=== PATIENT | female | born 1940 | race Caucasian/White ===

== ENCOUNTER 2023-04-03 09:34 | Outpatient (OUT) | payer MEDICARE, SELFPAY ==
[2023-04-03 10:07] LABS: Basophils Absolute Auto 0.1 10^3/uL (0.0-0.1); Basophils Percent Auto 0.8 % (0.2-2.0); Eosinophils Absolute Auto 0.2 10^3/uL (0.0-0.7); Eosinophils Percent Auto 2.2 % (0.9-7.0); Hematocrit 44.3 % (36.0-48.0); Hemoglobin 14.7 g/dL (12.0-16.0); Immature Granulocytes Abs Auto 0.03 10^3/uL (0.00-0.03); Immature Granulocytes Pct Auto 0.4 % (0.0-0.5); Lymphocytes Percent Auto 34.8 % (20.5-60.0); Mean Corpuscular HGB Conc 33.2 g/dL (29.9-35.2); Mean Corpuscular Hemoglobin 32.5 pg (26.7-34.0); Mean Corpuscular Volume 97.8 fL (81.0-99.0); Mean Platelet Volume 9.8 fL (9.5-13.5); Monocytes Absolute Auto 0.9 10^3/uL (0.3-0.8); Monocytes Percent Auto 10.1 % (1.7-12.0); Neutrophils Absolute Auto 4.4 10^3/uL (1.4-6.5); Neutrophils Percent Auto 51.7 % (43.0-75.0); Platelet Count 242 10^3/uL (150-450); Red Blood Count 4.53 10^6/uL (4.20-5.40); Red Cell Distribution Width 12.7 % (11.0-15.0); White Blood Count 8.5 10^3/uL (4.0-11.0)
== END 2023-04-03 09:35 ==
LOC: LAB 09:37
PROVIDERS: PCP Nurse Practitioner; Visit Provider Nurse Practitioner
DX: K62.5 Hemorrhage of anus and rectum (principal)
CPT/HCPCS: 36415; 85025

== ENCOUNTER 2024-03-09 10:32 | Outpatient (OUT) | payer MEDICARE, SELFPAY ==
--- NOTE | 2024-03-09 10:38 | XR_ITS ---
The [address] [address] Patient Name: LEDA VALENTIN MRN: [id number] date: 1940 Sex: F Assigned Patient Location: [facility] Current Patient Location: Accession/Order Number: [id number] Exam Date: 03/09/2024 10:45 Report Date: 03/10/2024 06:23 At the request of: APOLONIA TINSLEY Procedure: XR chest 2V EXAMINATION: XR chest 2V HISTORY: Shortness Of Breath, Cough COMPARISON: XR chest 07/01/2022 FINDINGS: LUNGS: No appreciable infiltrates. Left lung base opacity favors a prominent pericardial fat pad. VASCULATURE: No increased pulmonary vasculature. PLEURA: No pneumothorax, effusion, or pleural thickening. CARDIAC: No cardiomegaly or cardiac silhouette abnormality. MEDIASTINUM: No visible mass or adenopathy. BONES: No fracture or visible bone lesion. OTHER: Negative. XR/XR chest 2V IMPRESSION: 1. No acute cardiopulmonary process or significant chronic interstitial changes. Electronically authenticated by: MILAGROS CARO Date: 03/10/2024 06:23
== END 2024-03-09 10:33 | disposition home or self-care (01) ==
LOC: RAD 10:34
PROVIDERS: PCP Nurse Practitioner; Visit Provider Nurse Practitioner
DX: R06.02 Shortness of breath (principal); R05.9 Cough, unspecified
CPT/HCPCS: 71046

== ENCOUNTER 2024-06-10 12:29 | Outpatient (OUT) | payer MEDICARE, SELFPAY ==
--- NOTE | 2024-06-10 12:36 | CA_ITS ---
Patient Name: LEDA VALENTIN MR#: [id number] : 1940 Exam Date: 06/10/2024 Ordering Doctor: DR. NICOLE VERDUGO . ECHOCARDIOGRAM REPORT PROCEDURE: CA ECHO DOPPLER COMPLETE INDICATIONS: Shortness of breath, Abnormal CXR COMPARISON: None. DESCRIPTION: COMPLETE ECHOCARDIOGRAM Real-time transthoracic echocardiography with 2D, M-mode, spectral and color flow Doppler performed. QUALITY: Technical quality was good. LEFT VENTRICLE: Normal chamber size. Normal left ventricular wall thickness. LV EF: Global left ventricular systolic function is normal. Calculated left ventricular ejection fraction is 65%. No significant valvular abnormalities. DIASTOLIC: Normal diastolic function. ATRIAL SEPTUM: Inadequately seen. LEFT ATRIUM: Normal chamber size. RIGHT ATRIUM: Normal chamber size. RIGHT VENTRICLE: Normal chamber size. Normal right ventricular systolic function. TRICUSPID VALVE: Normal mobility and thickness. No stenosis with trivial regurgitation. Mild pulmonary hypertension. RVSP 38mmHg MITRAL VALVE: Normal mobility and thickness. No evidence of mitral valve stenosis. Mild mitral annular calcification. Trivial mitral regurgitation. AORTIC VALVE: Normal trileaflet appearance. No visible sclerosis. Normal leaflet mobility. No evidence of aortic valve stenosis. No aortic regurgitation. AORTIC ROOT: Normal diameter and appearance. PULMONIC VALVE: Normal thickness and mobility. No stenosis. No regurgitation. PERICARDIUM: Anterior free space; trivial effusion versus fat pad. IVC: Collapses with inspirations. Normal size. CONCLUSION: 1. Global left ventricular systolic function is normal; visually estimated ejection fraction is 60 to 65% 2. Normal right ventricular size and systolic function 3. Normal diastolic function 4. Mildly elevated right ventricular systolic pressure; RVSP 38 mmHg 5. No significant valvular abnormalities 6. Anterior free space; trivial effusion versus fat pad Adult Echocardiography Procedure Report Left Ventricle LVEDD (3.7 - 5.6 cm): 3.58 cm LVESD (2.2 - 4.0 cm): 2.53 cm LVIVS thickness (0.6 - 1.2 cm): 0.94 cm LVPW thickness (0.5 - 1.0 cm): 0.83 cm e': 0.09 m/s E - e': 10.32 LVOT Max Gradient: 4.31 mm[Hg] LVOT Area (cm2): 1.04 m/s Peak Velocity (LVOT): 1.04 m/s Mean Velocity (LVOT): 0.74 m/s LVOT Diameter 1.99 cm Left Ventricular Ejection Fraction: 65.44 % Left Atrium LA Volume Index (2D A2C): 24.44 ml/m2 Left Atrium Systolic Dimension: 2.92 cm Mitral Valve MV E to A Ratio: 0.69 Mitral Valve A-Wave Peak Velocity: 1.32 m/s Mitral Valve E-Wave Peak Velocity: 0.92 m/s Right Ventricle RV Internal Diastolic Dimension: 3.04 cm Aorta AO Root Diam: 2.65 cm Ascending Ao Diam: 2.30 cm Aortic Valve AoV Area (Peak Wu): 2.44 cm2, 2.37 cm2 AoV Area (VTI): 2.38 cm2, 2.44 cm2 Peak Velocity(Antegrade Flow): 1.36 m/s, 1.28 m/s Peak Gradient(Antegrade Flow): 7.41 mm[Hg], 6.56 mm[Hg] Mean Velocity(Antegrade Flow): 1.01 m/s, 0.96 m/s Mean Gradient(Antegrade Flow): 4.53 mm[Hg], 4.12 mm[Hg] Velocity Time Integral: 31.46 cm, 32.98 cm Tricuspid Valve Peak Velocity (Regurgitant Flow): 1.91 m/s, 2.97 m/s, 2.61 m/s Pulmonic Valve Mean Gradient: 3.12 mm[Hg], 3.63 mm[Hg], 3.51 mm[Hg], 4.03 mm[Hg] Mean Velocity: 0.83 m/s, 0.91 m/s, 0.89 m/s, 0.97 m/s Peak Velocity: 1.27 m/s Peak Gradient: 5.92 mm[Hg], 6.49 mm[Hg], 6.49 mm[Hg], 6.86 mm[Hg] Right Atrium Right Atrium Systolic Pressure: 24.79 ml, 24.79 ml Dictated by: Nomi Casillas M.D. on 06/10/2024 at 16:47 Approved by: Nomi Casillas M.D. on 06/10/2024 at 16:51
[2024-06-10 12:38] LABS: Hemoglobin 14.4 g/dL (12.0-16.0)
[2024-06-10] MEDS: ALBUTEROL SULFATE 2.5 MG/3 ML VIAL NEB IH (13:55)
--- NOTE | 2024-06-10 13:55 | RT_ITS ---
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 Findings were considered accurate and reproducible. Both pre- and post-bronchodilator values utilized for spirometry. Spirometry (based on pre-bronchodilator values): -FEV1/FVC: Reduced @ 66% -FEV1: Moderately reduced @ 78% -FVC: Low normal @ 86% -There is a partial bronchodilator response in FEV1 which meets >12% change but not >200mL increase. Lung volumes by plethysmography (based on pre-bronchodilator values): -RV: Increased @ 127% -TLC: Normal @ 111% Diffusion capacity: -DLCO: Moderate reduction @ 60% when corrected for Hb 14.4g/dL Flow-volume loop: -Moderate obstructive pattern Impressions: -Spirometry is consistent with a moderate obstructive pattern with a partial bronchodilator response. An elevated RV suggests air trapping. There is a moderately reduced diffusion capacity. Overall study suggests COPD/emphysema or possibly asthma-COPD overlap. Clinical correlation required. Electronically Signed On 06-11-2024 8:11:43 EDT by Melvin Mcqueen
== END 2024-06-10 12:30 | disposition home or self-care (01) ==
LOC: CARD 12:29
PROVIDERS: PCP Family Medicine; Visit Provider Internal Medicine
DX: R06.02 Shortness of breath (principal); R05.3 Chronic cough; R93.89 Abnormal findings on diagnostic imaging of other specified body structures
CPT/HCPCS: 36415; 85018; 93306; 94060; 94726; 94729

== ENCOUNTER 2024-06-29 15:48 | Outpatient (OUT) | payer MEDICARE, SELFPAY ==
--- NOTE | 2024-06-29 | CT_ITS ---
[address] [address] Patient Name: LEDA VALENTIN MRN: [id number] date: 1940 Sex: F Assigned Patient Location: CT Current Patient Location: Accession/Order Number: [id number] Exam Date: 06/29/2024 16:05 Report Date: 07/01/2024 07:19 At the request of: NICOLE VERDUGO Procedure: CT chest wo con EXAMINATION: CT chest wo con HISTORY: Abnormal chest xray COMPARISON: 03/09/2024 TECHNIQUE: Multi-planar CT images were created with IV contrast. Axial, Coronal, and Sagittal images. Dose reduction techniques were achieved by using automated exposure control and/or adjustment of mA and/or kV according to patient size and/or use of iterative reconstruction technique. FINDINGS: LUNGS: Biapical pleural parenchymal scarring no significant pulmonary nodule or mass PLEURA: No mass, effusion, or pneumothorax. VASCULATURE: No abnormality. JASON: No mass or adenopathy. MEDIASTINUM: No mass or adenopathy. CARDIAC: No enlargement or pericardial effusion Coronary arteries: Moderate calcifications AORTA: No aneurysm or dissection. CHEST WALL: No mass or axillary adenopathy. BONES: No bone lesion or fracture. LIMITED ABDOMEN: No suspicious findings. Limited images of the upper abdomen. OTHER: Negative. CT/CT chest wo con IMPRESSION: No acute abnormality Electronically authenticated by: KRISHAN VASQUEZ Date: 07/01/2024 07:19
--- OUTSIDE RECORDS SUMMARY | 2024-06-29 16:02 | XMS_ITS | CCD ---
Author Organization [facility] CliniSyfl Care Team Providers Care Case Packer Name Role Phone Cruz Woodward Admitting Unavailable Cruz Woodward Attending Unavailable Hurtado, Brenda Myers Primary Care Unavailable Andrei Anitha Unavailable Zeenat Cartwright Unavailable ISAAC, DR BRENDA Myers Primary Care Unavailable ISAAC, DR BRENDA Myers Admitting Unavailable HURTADO, DR BRENDA Myers Attending Unavailable EAGLE, DR JENNIFER Diego Consulting Unavailable ISAAC, DR BRENDA Myers Consulting Unavailable PEDRO, DR NICKERSON Consulting Unavailable LEDA NASH Consulting Unavailable ISAAC, DR BRENDA Myers Admitting Unavailable ISAAC, DR BRENDA Myers Attending Unavailable ISAAC, DR BRENDA Myers Primary Care Unavailable HURTADO, DR BRENDA Myers Consulting Unavailable TIERA THAYER Consulting Unavailable ISAAC, DR BRENDA Myers Admitting Unavailable ISAAC, DR BRENDA Myers Attending Unavailable ISAAC, DR BRENDA Myers Primary Care Unavailable ISAAC, DR BRENDA Myers Consulting Unavailable WEST, DR NICKERSON Consulting Unavailable ISAAC, DR BRENDA Myers Admitting Unavailable ISAAC, DR BRENDA Myers Attending Unavailable ISAAC, DR BRENDA Myers Primary Care Unavailable ISAAC, DR BRENDA Myers Consulting Unavailable ISAAC, DR BRENDA Myers Admitting Unavailable ISAAC, DR BRENDA Myers Attending Unavailable ISAAC, DR BRENDA Myers Primary Care Unavailable HURTADO, DR BRENDA Myers Consulting Unavailable GORDO, DR MILAGROS Diego Consulting Unavailable ISAAC, DR BRENDA Myers Admitting Unavailable ISAAC, DR BRENDA Myers Attending Unavailable ISAAC, DR BRENDA Myers Primary Care Unavailable HURTADO, DR BRENDA Myers Admitting Unavailable ISAAC, DR BRENDA Myers Attending Unavailable HURTADO, DR BRENDA Myers Primary Care Unavailable HURTADO, DR BRENDA Myers Consulting Unavailable Ester Bautista Primary Care Physician [phone] Ester Bautista Attending Unavailable MicheleEster mari Attending Unavailable MicheleEster mari Attending Unavailable MicheleEster mari Attending Unavailable MicheleEster mari Attending Unavailable Allergies Allergy Classification Reported Allergen(s) Allergy Type Date of Onset Reaction(s) Facility (4 sources) Codeine; Translations: [codeine] Drug Allergy Swelling (morphologic abnormality) [facility] (1 source) Codeine Drug Allergy [facility] Repository Medications Current Medications Medication Drug Class(es) Dates Sig (Normalized) Sig (Original) amoxicillin 875 mg oral tablet (1 source) Penicillin-class Antibacterial Start: 2 take 1 tablet by mouth every twelve hours Amoxicillin 875 MG 1 tablet Orally every 12 hrs for 7 days May, Active Fish Oils (2 sources) take 1 capsule by mouth three times daily Fish Oil 1200 MG 1 capsule Orally Three times a day for 30 day(s) Active fluticasone propionate 0.05 mg/actuat metered dose nasal spray (1 source) Corticosteroid Start: 2 take 1 spray(s) nasal route once daily Fluticasone Propionate 50 MCG/ACT 1 spray in each nostril Nasally Once a day for 14 day(s) Jun, Active methylPREDNISolone 4 mg oral tablet (1 source) Corticosteroid Start: 2 methylPREDNISolone 4 MG as directed Orally Once a day for 6 days May, Active Multivitamin Adults - (2 sources) Multivitamin Kuldip lts - as directed Orally Active Completed/Discontinued Medications Medication Drug Class(es) Dates Sig (Normalized) Sig (Original) Hemorrhoidal rectal suppository (1 source) Start: 04-03-2023 Hemorrhoidal rectal suppository See Instructions, 3 EA, Refill(s) 0, Insert 1 suppository rectally as needed, [facility]/pharmacy #[id number], 153.1, cm, 04/03/23 8:25:00 EDT, Height/Length Dosing, 87.1, kg, 04/03/23 8:25:00 EDT, Weight Dosing Start Date: 04/03/23 Status: Ordered Problems Active Problems Problem Classification Problem Date Documented Da te Episodic/Chronic Fever of unknown origin (4 sources) Fever, unspecified; Translations: [FEVER UNSPECIFIED] Onset: 06-25-2022 Episodic Gastrointestinal hemorrhage (1 source) Rectal hemorrhage 04-03-2023 Episodic Osteoarthritis (6 sources) Osteoarthritis of knee; Translations: [Unilateral primary osteoarthritis, left knee] Chronic Other connective tissue disease (4 sources) History of total knee arthroplasty; Translations: [History of total knee arthroplasty] Chronic Other diseases of veins and lymphatics (2 sources) Peripheral venous insufficiency; Translations: [Venous insufficiency (chronic) (peripheral)] Episodic Other lower respiratory disease (1 source) Shortness of breath; Translations: [SHORTNESS OF BREATH] Onset: 07-03-2022 Episodic Pneumonia (except that caused by tuberculosis or sexually transmitted disease) (4 sources) Pneumonia, unspecified organism; Translations: [PNEUMONIA UNSPECIFIED ORGANISM] Onset: 07-02-2022 Episodic Screening and history of mental health and substance abuse codes (1 source) Personal history of nicotine dependence; Translations: [PERSONAL HISTORY OF NICOTINE DEPEND] Onset: 07-03-2022 Episodic Spondylosis; intervertebral disc disorders; other back problems (2 sources) Lumbosacral spondylosis without myelopathy; Translations: [Spondylosis without myelopathy or radiculopathy, lumbar region] Chronic Unclassified (1 source) Z96.653 - Presence of artificial knee joint, bilateral; Translations: [Z96.653 - Presence of artificial knee joint, bilateral] Onset: 02-11-2019 Unclassified (1 source) PERSONAL HISTORY OF COVID-19; Translations: [PERSONAL HISTORY OF COVID-19] Onset: 07-03-2022 Unclassified (3 sources) CONTACT W/AND (SUSP) EXPOS COVID-19; Translations: [CONTACT W/AND (SUSP) EXPOS COVID-19] Onset: 06-07-2022 Unclassified (1 source) COUGH, UNSPECIFIED; Translations: [COUGH, UNSPECIFIED] Onset: 05-31-2022 Viral infection (2 sources) COVID-19; Translations: [COVID-19] Onset: 06-06-2022 Resolved: 06-06-2022 Past or Other Problems Problem Classification Problem Date Documented Date Episodic/Chronic Abdominal pain (8 sources) Right upper quadrant pain; Translations: [Unspecified abdominal pain] Onset: 05-29-2022 Episodic Other upper respiratory infections (2 sources) Acute laryngitis; Translations: [Acute upper respiratory infection, unspecified] Onset: 06-06-2022 Resolved: 06-21-2022 Episodic Otitis media and related conditions (2 sources) Otitis media, unspecified, bilateral; Translations: [Unspecified nonsuppurative otitis media, left ear] Onset: 06-06-2022 Resolved: 06-21-2022 Episodic Unclassified (1 source) CONTACT W/AND (SUSP) EXPOS COVID-19; Translations: [CONTACT W/AND (SUSP) EXPOS COVID-19] Onset: 06-05-2022 Results Test Name Value Interpretation Reference Range Facility Ambulatory Visit Summaryon 0 06-25-2024 Ambulatory Visit Summary Ambulatory Visit Summary DINA GREEN :1940 Visit Date:06/24/2024 Ambulatory Visit Instructions Your Diagnosis Encounter for subsequent annual wellness visit in Medicare patient Immunization refused Shortness of breath Lipid screening declined by patient Obesity due to excess calories Your Care Team Attending Physician - Ester Romero Primary Care Physician - Ester Romero This Is Your Medications List budesonide/formoterol /glycopyrrolate (Breztri Aerosphere) multivitamin (Multi Vitamin+) omega-3 polyunsaturated fatty acids (Fish Oil) Procedures Performed Appendectomy, section, Hysterectomy and bilateral salpingo-oophorectomy specimen. Discharge Vitals Heart Rate (Peripheral) 77 Respiratory Rate 16 Blood Pressure 130/60 Height 152 cm Height 60 in Weight 83.73 kg Weight 184.206 lb BMI 36.24 What to do next Scheduled Follow-Up Appointments Friday 8:00 AM EDT Where: [facility] [address] [address]- Medications What How Much When Instructions Unchanged budesonide/ formoterol/ glycopyrrolate (Breztri Aerosphere) 2 Puffs Inhalation 2 times a day Unchanged multivitamin (Multi Vitamin+) Unchanged omega-3 polyunsaturated fatty acids (Fish Oil) 1,000 Milligram By Mouth Every day Medications and Immunizations Administered Not Given influenza virus vaccine, inactivated, Patient Refuses Allergies codeine (Swelling) Problems Ongoing - Any problem that you are currently receiving treatment for. Bilateral otitis media BMI 36.0-36.9,adult Cough Left otitis media Rectal bleeding Seasonal allergies Shortness of breath Sinusitis Upper respiratory infection Patient Survey You may receive a survey via text or e-mail asking about your office visit. Please share your experience with us by completing your survey. We appreciate your feedback and thank you for choosing us for your care. Education Materials BMI for Adults Body mass index (BMI) is a number found using a person's weight and height. BMI can help tell how much of a person's weight is made up of fat. BMI does not measure body fat directly. It is used instead of tests that directly measure body fat, which can be difficult and expensive. What are BMI measurements used for? BMI is useful to: ? Find out if your weight puts you at higher risk for medical problems. ? Help recommend changes, such as in diet and exercise. This can help you reach a healthy weight. BMI screening can be done again to see if these changes are working. How is BMI calculated? Your height and weight are measured. The BMI is found from those numbers. This can be done with U.S. or metric measurements. Note that charts and online BMI calculators are available to help you find your BMI quickly and easily without doing these calculations. To calculate your BMI in U.S. measurements: 1. Measure your weight in pounds (lb). 2. Multiply the number of pounds by 703. ? So, for an adult who weighs 150 lb, multiply that number by 703: 150 x 703, which equals 105,450. 3. Measure your height in inches. Then multiply that number by itself to get a measurement called inches squared. ? So, for an adult who is 70 inches tall, the inches squared measurement is 70 inches x 70 inches, which equals 4,900 inches squared. 4. Divide the total from step 2 (number of lb x 703) by the total from step 3 (inches squared): 105,450 ? 4,900 = 21.5. This is your BMI. To calculate your BMI in metric measurements: 1. Measure your weight in kilograms (kg). ? For this example, the weight is 70 kg. 2. Measure your height in meters (m). Then multiply that number by itself to get a measurement called meters squared. ? So, for an adult who is 1.75 m tall, the meters squared measurement is 1.75 m x 1.75 m, which equals 3.1 meters squared. 3. Divide the number of kilograms (your weight) by the meters squared number. In this example: 70 ? 3.1 = 22.6. This is your BMI. What do the results mean? BMI charts are used to see if you are underweight, normal weight, overweight, or obese. The following guidelines will be used: ? Underweight: BMI less than 18.5. ? Normal weight: BMI between 18.5 and 24.9. ? Overweight: BMI between 25 and 29.9. ? Obese: BMI of 30 or above. BMI is a tool and cannot diagnose a condition. Talk with your health care provider about what your BMI means for you. Keep these notes in mind: ? Weight includes fat and muscle. Someone with a muscular build, such as an athlete, may have a BMI that is higher than 24.9. In cases like these, BMI is not a correct measure of body fat. ? If you have a BMI of 25 or higher, your provider may need to do more testing to find out if excess body fat is the cause. ? BMI is measured the same way for (more content not included)... Normal [facility] Family Medicine Office/Clini c Noteon 06-25-2024 Family Medicine Office/Clinic Note Family Medicine Office/Clinic Note Chief Complaint Subsequent Medicare Wellness Review of Systems PHQ Score Initial Depression Screen Score: 0 SCORE Physical Exam Vitals & Measurements HR: 77(Peripheral) RR: 16 BP: 130/60 SpO2: 97% HT: 152 cm HT: 60 in WT: 83.73 kg WT: 184.206 lb BMI: 36.24 Assessment/Plan 1. Encounter for subsequent annual wellness visit in Medicare patient (Z00.00: Encounter for general adult medical examination without abnormal findings) All the current AHRQ USPSTF?s recommendations for preventative services and all current CDC recommended immunizations, relevant risk recommendations and the following patient brochures were discussed. Patient did declined a copy. Patient understands that it is available if patient would like a copy. Reviewed Medicare Prevention Services checklist. CDC-Falls Prevention and home safety screening reviewed. Patient denies any falls in last 12 months, voices no worry about falling. Exhibits no problems with sitting, standing or ambulation. Patient aware with keeping walk way area free of clutter to prevent tripping and/or falling. [place] Advance Directives reviewed. Documents are scanned into chart. Patient is an organ donor. Patient denies any problems with ADL?s and Instrumental ADL?s. Cognitive screening completed with memory and clock face drawing. No deficits noted. Patient recited 3/3 memory words. Immunization record reviewed, discussed Shingrix vaccine with educational handout and availability. 0 COVID vaccines have been administered. Patient reports that she does not get immunizations. Allergies and medications reviewed and up to date. No concerns with taking medication as prescribed. Reviewed OTC medications, medication list up to date. Blood tests were reviewed: Discussed what tests need to be updated. Patient reports that she had labs done for Dr. Mcqueen at [facility]. Labs reports will be requested. No concerns with bowel/ bladder. No longer screening with colonoscopy due to age. Reviewed pain symptoms : Patient denies pain. Reviewed all outside providers that patient follows. Last visit summary notes available in chart and/or have been requested. Patient declines any signs or symptoms of depression at this time. 8 minutes spent with screening and documentation. PHQ2 screening score 0. Patient drinks alcohol once every 3-4 months. 1-2 drinks, denies concerns. 8 minutes spent with screening and documentation. Audit score 1. Follow up scheduled with PCP, Patient declines to make follow up appointment. Patient reports she will make an appointment when needed. AWV has been scheduled, 06/27/2025 2. Immunization refused (Z28.21: Immunization not carried out because of patient refusal) Patient declines yearly recommend influenza vaccine. Discussed increased risk factors vs benefits, reviewed importance to follow up and discuss with PCP 3. Shortness of breath (R06.02: Shortness of breath) Patient has follow up scheduled with Dr. Mcqueen to discuss results of PFT, Echo, and lab work 06/29/2024. 4. Lipid screening declined by patient (Z53.20: Procedure and treatment not carried out because of patient's decision for unspecified reasons) Lipid screening declined by patient today. Patient reports that Dr. Mcqueen had her get lab work recently at [facility]. Patient is unsure what tests were ordered. Request to [facility] to fax lab results. 5. Obesity due to excess calories (E66.09: Other obesity due to excess calories) The standard range for ages 18 and older is >=18.5 and < 25 kg/m2. Your BMI 36.24 today was above this range, this falls in the overweight obesity morbid obese category and there are medical benefits to weight loss. BMI monitoring is helpful with identifying a weight problem that may be related to a medical condition, or may increase the risk for medical problems. Your BMI and weight management will be followed at subsequent visits with your provider and monitored for progress. GOAL: promoting healthier lifestyle with diet changes in order to reach a healthy weight. Follow-up No qualifying data available Patient Education BMI for Adults Shortness of Breath, Adult Health Maintenance After Age 65 Problem List/Past Medical History Ongoing Bilateral otitis media BMI 36.0-36.9,adult Cough Left otitis media Rectal bleeding Seasonal allergies Shortness of breath Sinusitis Upper respiratory infection Historical No qualifying data Procedure/Surgical History Appendectomy, section, Hysterectomy and bilateral salpingo-oophorectomy specimen. Medications Breztri Aerosphere, 2 puff(s), Inhalation, BID, Not taking Fish Oil, 1000 mg, Oral, Daily Multi Vitamin+ Allergies codeine (Swelling) Social History Alcohol Current, Liquor, 1-2 times per year, 1.00 drinks/episode maximum. Alcohol use interferes with work or home: No. Drinks more than intended: No. Others hurt by drinking: No. Ready to change: No. Household alcohol concerns: No., 06/24/2024 Subst (more content not included)... Normal [facility] Comment on above: Result Comment: Elec tronically Signed By: Ester Romero\.br\Date and Time Signed: 06/25/24 09:05 EDT\.br\Electronically Co-Signed By: Melissa Nguyen\.br\Date and Time Co-Signed: 06/24/24 10:14 EDT Ambulatory Visit Summaryon 0 04-16-2024 Ambulatory Visit Summary Ambulatory Visit Summary DINA GREEN :1940 Visit Date:04/16/2024 Ambulatory Visit Instructions Your Diagnosis Sinusitis Left otitis media Cough BMI 36.0-36.9,adult Non-smoker Your Care Team Attending Physician - Ester Romero Primary Care Physician - Ester Romeor This Is Your Medications List budesonide/formoterol /glycopyrrolate (Breztri Aerosphere) cefuroxime (cefuroxime 500 mg oral tablet) dextromethorphan/guai fenesin/pseudoephedri ne (Capmist DM 15 mg-400 mg-60 mg oral tablet) methylPREDNISolone (methylPREDNISolone 4 mg tab dosepak) multivitamin (Multi Vitamin+) omega-3 polyunsaturated fatty acids (Fish Oil) Procedures Performed Appendectomy, section, Hysterectomy and bilateral salpingo-oophorectomy specimen. Discharge Vitals Temperature (Tympanic) 36.9 ?C Heart Rate (Peripheral) 74 Respiratory Rate 18 Blood Pressure 136/78 Height 152.0 cm Height 60 in Weight 84.6 kg Weight 186.12 lb BMI 36.62 What to do next Scheduled Follow-Up Appointments 2023 8:00 AM EDT Where: [facility] [place] [facility] Medicine Office/Clini c Noteon 04-16-2024 Family Medicine Office/Clinic Note Family Medicine Office/Clinic Note HPI Staff Dina is a 83 year old female presenting for acute sick visit Respiratory C/O: Onset: 6 days Body aches: no Chest congestion: yes Chills: no Cough: yes Sputum production: no Sore throat: post nasal drainage Ear complaints: yes pressure Eye itching/watering: no Fever: no Headache: yes Nasal congestion: yes Nasal discharge: yes Poor appetite: no Reduced activity: no Sinus pain/pressure: yes Sneezing: no Wheezing: no Ill contacts: no Remedies tried: Benadryl Coughing so much and so hard History of Present Illness pt presents today with URI symptoms Review of Systems PHQ Score Initial Depression Screen Score: 0 SCORE Physical Exam Vitals & Measurements T: 36.9 ?C(Tympanic) HR: 74(Peripheral) RR: 18 BP: 136/78 SpO2: 96% HT: 60 in HT: 152.0 cm WT: 84.6 kg WT: 186.12 lb BMI: 36.62 General: alert, no acute distress ENMT: oral mucosa moist, no pharyngeal erythema or exudate, left TM red and full of fluid Cardiovascular: regular rate and rhythm, normal peripheral perfusion Respiratory: Lungs CTA, respirations non labored Extremities: no deformity, no trauma Neurological: oriented x 4, LOC appropriate for age, CN II-XII intact, motor strength equal & normal bilaterally, speech normal Assessment/Plan 1. Sinusitis (J32.9: Chronic sinusitis, unspecified) nasal congestion, sinus tenderness, ear pressure cough. antibiotics Medrol dose pack and Capmist sent to pharmacy 2. Left otitis media (H66.92: Otitis media, unspecified, left ear) left TM red and full of fluid 3. Cough (R05.9: Cough, unspecified) severe cough pt unable to sleep at night 4. BMI 36.0-36.9,adult (Z68.36: Body mass index [BMI] 36.0-36.9, adult) BMI education given 5. Non-smoker (Z78.9: Other specified health status) continue not smoking Orders: cefuroxime, 500 mg = 1 tab(s), Oral, BID, X 10 day(s), # 20 tab(s), Refills(s) 0, Pharmacy: [facility]/pharmacy #[id number], 152, cm, 04/16/24 10:39:00 EDT, Height/Length Dosing, 84.6, kg, 04/16/24 10:39:00 EDT, Weight Dosing dextromethorphan/guai fenesin/pseudoephedri ne, See Instructions, 28 tab(s), Refill(s) 0, TAKE 1 TABLET BY MOUTH EVERY 4 HOURS, [facility]/pharmacy #[id number], 152, cm, 04/16/24 10:39:00 EDT, Height/Length Dosing, 84.6, kg, 04/16/24 10:39:00 EDT, Weight Dosing methylPREDNISolone, = 1 packet(s), Oral, Once, as directed on package labeling, # 21 tab(s), Refills(s) 0, Pharmacy: [facility]/pharmacy #[id number], 152, cm, 04/16/24 10:39:00 EDT, Height/Length Dosing, 84.6, kg, 04/16/24 10:39:00 EDT, Weight Dosing Follow-up No qualifying data available Problem List/Past Medical History Ongoing Bilateral otitis media Cough Left otitis media Rectal bleeding Seasonal allergies Shortness of breath Sinusitis Upper respiratory infection Historical No qualifying data Procedure/Surgical History Appendectomy, section, Hysterectomy and bilateral salpingo-oophorectomy specimen. Medications Breztri Aerosphere, 2 puff(s), Inhalation, BID Capmist DM 15 mg-400 mg-60 mg oral tablet, See Instructions cefuroxime 500 mg oral tablet, 500 mg= 1 tab(s), Oral, BID Fish Oil, 1000 mg, Oral, Daily methylPREDNISolone 4 mg tab dosepak, 1 packet(s), Oral, Once Multi Vitamin+ Allergies codeine (Swelling) Social History Alcohol Liquor, 1-2 times per year, 1.00 drinks/episode maximum. Household alcohol concerns: No., 06/19/2023 Tobacco Former smoker, quit more than 30 days ago Tobacco Use:. Never Smokeless Tobacco Use:. Cigarettes, Household tobacco concerns: No., 04/16/2024 Family History Acute myocardial infarction: Father. Primary malignant neoplasm of colon: Mother. Stroke: Father. [facility] Comment on above: Result Comment: Elec tronically Signed By: Ester Romero\.br\Date and Time Signed: 04/16/24 10:52 EDT Physician Referralon 024 Physician Referral [id number]# 1.00TIFF [facility] Family Medicine Phone Visit - Telehealthon 03-29-2024 Family Medicine Phone Visit - Telehealth Assessment/Plan 1. Shortness of breath (R06.02: Shortness of breath) patient phones in and states the bretztri inhaler is not helping her shortness of breath. would like referral to DR. Mcqueen. Ordered: [facility] External Ambulatory Referral Follow-up No qualifying data available Problem List/Past Medical History Ongoing Bilateral otitis media Cough Rectal bleeding Seasonal allergies Shortness of breath Sinusitis Upper respiratory infection Historical No qualifying data Procedure/Surgical History Appendectomy, section, Hysterectomy and bilateral salpingo-oophorectomy specimen. Medications Breztri Aerosphere, 2 puff(s), Inhalation, BID Fish Oil, 1000 mg, Oral, Daily Multi Vitamin+ Allergies codeine (Swelling) Social History Alcohol Liquor, 1-2 times per year, 1.00 drinks/episode maximum. Household alcohol concerns: No., 06/19/2023 Tobacco Former smoker, quit more than 30 days ago Tobacco Use:. Never Smokeless Tobacco Use:. Cigarettes, Household tobacco concerns: No., 03/09/2024 Family History Acute myocardial infarction: Father. Primary malignant neoplasm of colon: Mother. Stroke: Father. [facility] Comment on above: Result Comment: Elec tronically Signed By: Ester Romero.br\Date and Time Signed: 03/29/24 11:08 EDT RAD - MISCon 03-10-2024 [facility] [id number]#1 .00TIFF [facility] Ambulatory Visit Summaryon 0 03-09-2024 Ambulatory Visit Summary DINA GREEN :1940 Visit Date:03/09/2024 Ambulatory Visit Instructions Your Diagnosis Shortness of breath Sinusitis Cough Seasonal allergies BMI 37.0-37.9, adult Former smoker Your Care Team Attending Physician - Ester Romero Primary Care Physician - Ester Romero This Is Your Medications List budesonide/formoterol /glycopyrrolate (Breztri Aerosphere) cefuroxime (cefuroxime 500 mg oral tablet) multivitamin (Multi Vitamin+) omega-3 polyunsaturated fatty acids (Fish Oil) Procedures Performed Appendectomy, section, Hysterectomy and bilateral salpingo-oophorectomy specimen. Discharge Vitals Heart Rate (Peripheral) 86 Respiratory Rate 18 Blood Pressure 138/84 Height 152.0 cm Height 60 in Weight 85.6 kg Weight 188.32 lb BMI 37.05 What to do next Scheduled Follow-Up Appointments 2023 8:00 AM EDT Where: [facility] [place] Normal [facility] Family Medicine Office/Clini c Noteon 03-09-2024 Family Medicine Office/Clinic Note HPI Staff iDna is a 83 year old female presenting for acute visit Onset: over a year gradually getting worse Having shortness of breath with activity has had it over a year but getting worse. Pt stated as long as she walks slow and not to far or doesn't carry anything heavy she is ok. But if she walks at a faster pace becomes very short of breath. Onset: 3-4 years right simental red and has intermittent sharp pains. 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 Dry cough with post nasal drainage, has been taking Benadryl History of Present Illness pt c/o worsening shortness of breath Review of Systems PHQ Score Initial Depression Screen Score: 0 SCORE Physical Exam Vitals & Measurements HR: 86(Peripheral) RR: 18 BP: 138/84 SpO2: 98% HT: 60 in HT: 152.0 cm WT: 85.6 kg WT: 188.32 lb BMI: 37.05 General: alert, no acute distress ENMT: oral mucosa moist, no pharyngeal erythema or exudate Cardiovascular: regular rate and rhythm, normal peripheral perfusion Respiratory: Lungs CTA, respirations non labored Extremities: no deformity, no trauma Neurological: oriented x 4, LOC appropriate for age, CN II-XII intact, motor strength equal & normal bilaterally, speech normal Assessment/Plan 1. Shortness of breath (R06.02: Shortness of breath) pt c/o worsening shortness of breath a cough. chest xray ordered. sample of bretrzi provided. if it helps pt will let us know to call rx into pharmacy. 2. Sinusitis (J32.9: Chronic sinusitis, unspecified) will send cefuroxime Ordered: dextromethorphan/guai fenesin/pseudoephedri ne, 1 tab(s), Oral, q4hr, 30 tab(s), Refill(s) 0, [id number], 152, cm, 09/16/23 8:55:00 EST, Height/Length Dosing, 83.8, kg, 09/16/23 8:55:00 EST, Weight Dosing 3. Cough (R05.9: Cough, unspecified) chest x ray ordered. discussed possible referral to pulmonology. 4. Seasonal allergies (J30.2: Other seasonal allergic rhinitis) allergies are flared up. offered kenalog or medrol dose pack. she declines both 5. BMI 37.0-37.9, adult (Z68.37: Body mass index [BMI] 37.0-37.9, adult) BMI education complete Ordered: phenylephrine topical, See Instructions, 3 EA, Refill(s) 0, Insert 1 suppository rectally as needed, [id number], 153.1, cm, 04/03/23 8:25:00 EDT, Height/Length Dosing, 87.1, kg, 04/03/23 8:25:00 EDT, Weight Dosing 6. Former smoker (Z87.891: Personal history of nicotine dependence) continue not smoking Orders: cefuroxime, 500 mg = 1 tab(s), Oral, BID, X 7 day(s), # 14 tab(s), Refills(s) 0, Pharmacy: [facility] #[id number], 152, cm, 03/09/24 9:36:00 EDT, Height/Length Dosing, 85.6, kg, 03/09/24 9:36:00 EDT, Weight Dosing methylPREDNISolone, = 1 packet(s), Oral, Once, as directed on package labeling, # 21 tab(s), Refills(s) 0, Pharmacy: [facility] #[id number], 152, cm, 09/16/23 8:55:00 EST, Height/Length Dosing, 83.8, kg, 09/16/23 8:55:00 EST, Weight Dosing Follow-up No qualifying data available Problem List/Past Medical History Ongoing Bilateral otitis media Cough Rectal bleeding Seasonal allergies Shortness of breath Sinusitis Upper respiratory infection Historical No qualifying data Procedure/Surgical History Appendectomy, section, Hysterectomy and bilateral salpingo-oophorectomy specimen. Medications Breztri Aerosphere, 2 puff(s), Inhalation, BID cefuroxime 500 mg oral tablet, 500 mg= 1 tab(s), Oral, BID Fish Oil, 1000 mg, Oral, Daily Multi Vitamin+ Allergies codeine (Swelling) Social History Alcohol Liquor, 1-2 times per year, 1.00 drinks/episode maximum. Household alcohol concerns: No., 06/19/2023 Tobacco Former smoker, quit more than 30 days ago Tobacco Use:. Never Smokeless Tobacco Use:. Cigarettes, Household tobacco concerns: No., 03/09/2024 Family History Acute myocardial infarction: Father. Primary malignant neoplasm of colon: Mother. Stroke: Father. [facility] Comment on above: Result Comment: Elec tronically Signed By: Ester Romero\.wilber\Date and Time Signed: 03/09/24 10:17 EDT Physician Orderon 03-09-2024 Physician Order [id number] .00TIFF [facility] Ambulatory Visit Summaryon 1 11-16-2022 Ambulatory Visit Summary DINA GREEN Anabel :1940 Visit Date:09/16/2023 Ambulatory Visit Instructions Your Diagnosis BMI 36.0-36.9,adult Non-smoker Your Care Team Attending Physician - Ester Romero Primary Care Physician - Ester Romero This Is Your Medications List multivitamin (Multi Vitamin+) omega-3 polyunsaturated fatty acids (Fish Oil) phenylephrine topical (Hemorrhoidal rectal suppository) Procedures Performed Appendectomy, section, Hysterectomy and bilateral salpingo-oophorectomy specimen. Discharge Vitals Temperature (Tympanic) 37.1 ?C Heart Rate (Peripheral) 106 Respiratory Rate 20 Blood Pressure 158/82 Height 152 cm Height 60 in Weight 83.8 kg Weight 184.36 lb BMI 36.27 What to do next Scheduled Follow-Up Appointments 2023 8:00 AM EDT Where: [facility] Family Medicine Office/Clini c Noteon 09-16-2023 Family Medicine Office/Clinic Note HPI Staff Dina is a 82 year old female presenting for acute sick visit Respiratory C/O: Onset: 3 days ago Body aches: no Chest congestion: yes Chills: yes Cough: yes Sputum production: yes brown/yellow started today Sore throat: no Ear complaints: yes bilateral pain Eye itching/watering: no Fever: no Headache: yes Nasal congestion: no Nasal discharge: yes clear Poor appetite: no Reduced activity: no Sinus pain/pressure: yes Sneezing: yes Wheezing: no Ill contacts: no Remedies tried: Benadryl Questions/Concerns: woke up Friday with a sore throat History of Present Illness pt presents today with sinus symptoms and cough Review of Systems PHQ Score Initial Depression Screen Score: 0 SCORE ROS - Provider Constitutional: no fever, no chills, no sweats, no fatigue Respiratory: no shortness of breath, no cough, no orthopnea, no wheezing. Cardiovascular: no chest pain, no palpitations, no edema. Neurologic: no headache, no dizziness, no numbness, no weakness. Physical Exam Vitals & Measurements T: 37.1 ?C(Tympanic) HR: 106(Peripheral) RR: 20 BP: 158/82 SpO2: 98% HT: 60 in HT: 152 cm WT: 83.8 kg WT: 184.36 lb BMI: 36.27 General: alert, no acute distress ENMT: oral mucosa moist, no pharyngeal erythema or exudate Cardiovascular: regular rate and rhythm, normal peripheral perfusion Respiratory: Lungs CTA, respirations non labored Extremities: no deformity, no trauma Neurological: oriented x 4, LOC appropriate for age, CN II-XII intact, motor strength equal & normal bilaterally, speech normal Assessment/Plan 1. Sinusitis (J32.9: Chronic sinusitis, unspecified) pt presents today for nasal congestion, ear pressure and severe cough. capmist, medrol dose pack and antibiotics sent to pharmacy. encouraged pt to rest and increase fluids. all questions answered. RTC as needed Ordered: dextromethorphan/guai fenesin/pseudoephedri ne, 1 tab(s), Oral, q4hr, 30 tab(s), Refill(s) 0, [facility]/pharmacy #[id number], 152, cm, 09/16/23 8:55:00 EST, Height/Length Dosing, 83.8, kg, 09/16/23 8:55:00 EST, Weight Dosing 2. Bilateral otitis media (H66.93: Otitis media, unspecified, bilateral) cefuroxime sent to pharmacy Ordered: dextromethorphan/guai fenesin/pseudoephedri ne, 1 tab(s), Oral, q4hr, 30 tab(s), Refill(s) 0, [facility]/pharmacy #[id number], 152, cm, 09/16/23 8:55:00 EST, Height/Length Dosing, 83.8, kg, 09/16/23 8:55:00 EST, Weight Dosing 3. Non-smoker (Z78.9: Other specified health status) continue not smoking Ordered: dextromethorphan/guai fenesin/pseudoephedri ne, 1 tab(s), Oral, q4hr, 30 tab(s), Refill(s) 0, [id number], 152, cm, 09/16/23 8:55:00 EST, Height/Length Dosing, 83.8, kg, 09/16/23 8:55:00 EST, Weight Dosing 4. BMI 36.0-36.9,adult (Z68.36: Body mass index [BMI] 36.0-36.9, adult) BMI education complete Ordered: dextromethorphan/guai fenesin/pseudoephedri ne, 1 tab(s), Oral, q4hr, 30 tab(s), Refill(s) 0, [facility]/pharm[facility] #[id number], 152, cm, 09/16/23 8:55:00 EST, Height/Length Dosing, 83.8, kg, 09/16/23 8:55:00 EST, Weight Dosing Orders: cefuroxime, 500 mg = 1 tab(s), Oral, BID, X 7 day(s), # 14 tab(s), Refills(s) 0, Pharmacy: [facility]/pharmacy #[id number], 152, cm, 09/16/23 8:55:00 EST, Height/Length Dosing, 83.8, kg, 09/16/23 8:55:00 EST, Weight Dosing methylPREDNISolone, = 1 packet(s), Oral, Once, as directed on package labeling, # 21 tab(s), Refills(s) 0, Pharmacy: [facility]/pharmacy #[id number], 152, cm, 09/16/23 8:55:00 EST, Height/Length Dosing, 83.8, kg, 09/16/23 8:55:00 EST, Weight Dosing Follow-up No qualifying data available Problem List/Past Medical History Ongoing Bilateral otitis media Cough Rectal bleeding Sinusitis Upper respiratory infection Historical No qualifying data Procedure/Surgical History Appendectomy, section, Hysterectomy and bilateral salpingo-oophorectomy specimen. Medications Capmist DM 15 mg-400 mg-60 mg oral tablet, 1 tab(s), Oral, q4hr cefuroxime 500 mg oral tablet, 500 mg= 1 tab(s), Oral, BID Fish Oil, 1000 mg, Oral, Daily Hemorrhoidal rectal suppository, See Instructions methylPREDNISolone 4 mg tab dosepak, 1 packet(s), Oral, Once Multi Vitamin+ Allergies codeine (Swelling) Social History Alcohol Liquor, 1-2 times per year, 1.00 drinks/episode maximum. Household alcohol concerns: No., 06/19/2023 Tobacco Never (less than 100 in lifetime) Tobacco Use:. Never Smokeless Tobacco Use:. Household tobacco concerns: No., 06/19/2023 Family History Acute myocardial infarction: Father. Primary malignant neoplasm of colon: Mother. Stroke: Father. Normal [facility] Comment on above: Result Comment: Elec tronically Signed By: Michele CHUA, Ester L\.br\Date and Time Signed: 09/16/23 10:04 EST CULTURE URINEon 07-02-2022 CULTURE URINE Culture Observations : NO GROWTH. Normal [facility] Comment on above: Performed By: #### C BC #### [facility] [address] [place] [address] Dr. Janeth Valdez CBC AUTO DIFFon 07-01-2022 BASO # 0.1 103/ul Normal 0.0-0.1 [facility] Comment on above: Performed By: #### C BC #### [facility] [address] [place] [address] Dr. Janeth Valdez Basophils/100 WBC (Bld) 0.8 % Normal 0.2-2.0 [facility] Comment on above: Performed By: #### C BC #### [facility] [address] [place] [address] Dr. Janeth Valdez EO # 0.9 103/ul Critically high 0.0-0.7 [facility] Comment on above: Performed By: #### C BC #### [facility] [address] [place] [address] Dr. Janeth Valdez Eosinophils/100 WBC (Bld) 10.3 % Critically high 0.9-7.0 [facility] Comment on above: Performed By: #### C BC #### [facility] [address] [place] [address] Dr. Janeth Valdez Erythrocyte distribution width (RBC) [Ratio] 13.2 % Normal 11.0-15.0 [facility] Comment on above: Performed By: #### C BC #### [facility] [address] [place] [address] Dr. Janeth Valdez Hematocrit (Bld) [Volume fraction] 43.3 % Normal 36.0-48.0 [facility] Comment on above: Performed By: #### C BC #### [facility] [address] [place] [address] Dr. Janeth Valdez Hemoglobin (Bld) [Mass/Vol] 14.3 g/dL Normal 12.0-16.0 [facility] Comment on above: Performed By: #### C BC #### [facility] [address] [address] [address] Janeth Valdez IG # 0.05 10e3/ul Critically high 0.00-0.03 [facility] Comment on above: Performed By: #### C BC #### [facility] [address] [address] [address] Janeth Valdez IG % 0.6 % Critically high 0.0-0.5 [facility] Comment on above: Performed By: #### C BC #### [facility] [address] [place] [address] Dr. Janeth Valdez LYMPH # 2.2 103/ul Normal 1.2-3.8 [facility] Comment on above: Performed By: #### C BC #### [facility] [address] [place] [address] Dr. Janeth Valdez Lymphocytes/100 WBC (Bld) 24.9 % Normal 20.5-60.0 [facility] Comment on above: Performed By: #### C BC #### [facility] [address] [place] [address] Dr. Janeth Valdez MANUAL DIFF REQ NO Normal [facility] Comment on above: Performed By: #### C BC #### [facility] [address] [place] [address] Dr. Janeth Valdez MCH (RBC) [Entitic mass] 32.1 pg Normal 26.7-34.0 [facility] Comment on above: Performed By: #### C BC #### [facility] [address] [place] [address] Dr. Janeth Valdez MCHC (RBC) [Mass/Vol] 33.0 g/dL Normal 29.9-35.2 [facility] Comment on above: Performed By: #### C BC #### [facility] [address] [place] [address] Dr. Janeth Valdez MCV (RBC) [Entitic vol] 97.1 fL Normal 81.0-99.0 [facility] Comment on above: Performed By: #### C BC #### [facility] [address] [address] [address] Janeth Valdez MONO # 1.1 103/ul Critically high 0.3-0.8 [facility] Comment on above: Performed By: #### C BC #### [facility] [address] [place] [address] Dr. Janeth Valdez Monocytes/100 WBC (Bld) 12.4 % Critically high 1.7-12.0 [facility] Comment on above: Performed By: #### C BC #### [facility] [address] [place] [address] Dr. Janeth Valdez NEUT # 4.6 103/ul Normal 1.4-6.5 [facility] Comment on above: Performed By: #### C BC #### [facility] [address] [place] [address] Dr. Janeth Valdez Neutrophils/100 WBC (Bld) 51.0 % Normal 43.0-75.0 [facility] Comment on above: Performed By: #### C BC #### [facility] [address] [place] [address] Dr. Janeth Valdez Platelet mean volume (Bld) [Entitic vol] 9.4 fL Critically low 9.5-13.5 [facility] Comment on above: Performed By: #### C BC #### [facility] [address] [place] [address] Dr. Janeth Valdez PLT 339 103/ul Normal 150-450 [facility] Comment on above: Performed By: #### C BC #### [facility] [address] [place] [address] Dr. Janeth Valdez RBC 4.46 106/ul Normal 4.20-5.40 [facility] Comment on above: Performed By: #### C BC #### [facility] [address] [place] [address] Dr. Janeth Valdez WBC 9.0 103/ul Normal 4.0-11.0 [facility] Comment on above: Performed By: #### C BC #### [facility] [address] [place] [address] Dr. Janeth Valdez XR CHEST 2 Von 07-01-2022 XR CHEST 2 V EXAMINATION: XR CHES T 2 V HISTORY: Fever ; follow-up pneumonia COMPARISON: XR chest 06/25/2022 FINDINGS: LUNGS: Scattered faint patchy opacities within lung bases. VASCULATURE: No increased pulmonary vasculature. PLEURA: No pneumothorax, effusion, or pleural thickening. CARDIAC: No cardiomegaly or cardiac silhouette abnormality. MEDIASTINUM: No visible mass or adenopathy. BONES: No fracture or visible bone lesion. OTHER: Negative. IMPRESSION: 1. Trace amount of bibasilar infiltrates versus atelectasis. Slightly different configuration than seen on prior study but not significantly worse or better. Electronically authenticated by: MILAGROS CARO Date: 2022-07-01 18:50 Normal [facility] CBC AUTO DIFFon 06-26-2022 BASO # 0.0 103/ul Normal 0.0-0.1 [facility] Comment on above: Performed By: #### C BC #### [facility] [address] [address] [address] Janeth Valdez Basophils/100 WBC (Bld) 0.2 % Normal 0.2-2.0 [facility] Comment on above: Performed By: #### C BC #### [facility] [address] [place] [address] Dr. Janeth Valdez EO # 0.0 103/ul Normal 0.0-0.7 [facility] Comment on above: Performed By: #### C BC #### [facility] [address] [address] [address] Janeth Valdez Eosinophils/100 WBC (Bld) 0.0 % Critically low 0.9-7.0 [facility] Comment on above: Performed By: #### C BC #### [facility] [address] [address] [address] Janeth Valdez Erythrocyte distribution width (RBC) [Ratio] 12.6 % Normal 11.0-15.0 [facility] Comment on above: Performed By: #### C BC #### [facility] [address] [place] [address] Dr. Janeth Valdez Hematocrit (Bld) [Volume fraction] 40.2 % Normal 36.0-48.0 [facility] Comment on above: Performed By: #### C BC #### [facility] [address] [place] [address] Dr. Janeth Valdez Hemoglobin (Bld) [Mass/Vol] 13.2 g/dL Normal 12.0-16.0 [facility] Comment on above: Performed By: #### C BC #### [facility] [address] [place] [address] Dr. Janeth Valdez IG # 0.05 10e3/ul Critically high 0.00-0.03 [facility] Comment on above: Performed By: #### C BC #### [facility] [address] [place] [address] Dr. Janeth Valdez IG % 0.6 % Critically high 0.0-0.5 [facility] Comment on above: Performed By: #### C BC #### [facility] [address] [place] [address] Dr. Janeth Valdez LYMPH # 1.6 103/ul Normal 1.2-3.8 [facility] Comment on above: Performed By: #### C BC #### [facility] [address] [place] [address] Dr. Janeth Valdez Lymphocytes/100 WBC (Bld) 18.4 % Critically low 20.5-60.0 [facility] Comment on above: Performed By: #### C BC #### [facility] [address] [place] [address] Dr. Janeth Valdez MANUAL DIFF REQ NO Normal [facility] Comment on above: Performed By: #### C BC #### [facility] [address] [place] [address] Dr. Janeth Valdez MCH (RBC) [Entitic mass] 31.5 pg Normal 26.7-34.0 [facility] Comment on above: Performed By: #### C BC #### [facility] [address] [place] [address] Dr. Janeth Valdez MCHC (RBC) [Mass/Vol] 32.8 g/dL Normal 29.9-35.2 [facility] Comment on above: Performed By: #### C BC #### [facility] [address] [address] [address] Janeth Valdez MCV (RBC) [Entitic vol] 95.9 fL Normal 81.0-99.0 [facility] Comment on above: Performed By: #### C BC #### [facility] [address] [address] [address] Janeth Valdez MONO # 0.4 103/ul Normal 0.3-0.8 [facility] Comment on above: Performed By: #### C BC #### [facility] [address] [address] [address] Janeth Valdez Monocytes/100 WBC (Bld) 4.8 % Normal 1.7-12.0 [facility] Comment on above: Performed By: #### C BC #### [facility] [address] [address] [address] Janeth Valdez NEUT # 6.7 103/ul Critically high 1.4-6.5 [facility] Comment on above: Performed By: #### C BC #### [facility] [address] [address] [address] Janeth Valdez Neutrophils/100 WBC (Bld) 76.0 % Critically high 43.0-75.0 [facility] Comment on above: Performed By: #### C BC #### [facility] [address] [address] [address] Janeth Valdez Platelet mean volume (Bld) [Entitic vol] 10.0 fL Normal 9.5-13.5 [facility] Comment on above: Performed By: #### C BC #### [facility] [address] [address] [address] Janeth Valdez PLT 193 103/ul Normal 150-450 [facility] Comment on above: Performed By: #### C BC #### [facility] [address] [address] [address] Janeth Valdez RBC 4.19 106/ul Critically low 4.20-5.40 [facility] Comment on above: Performed By: #### C BC #### [facility] [address] [place] [address] Dr. Janeth Valdez WBC 8.8 103/ul Normal 4.0-11.0 [facility] Comment on above: Performed By: #### C BC #### [facility] [address] [place] [address] Dr. Janeth Valdez PROF 14(COMP METB)on 022 Albumin [Mass/Vol] 2.8 g/dL Critically low 3.4-5.0 [facility] Comment on above: Performed By: #### C MP #### [facility] [address] [place] [address] Dr. Janeth Valdez Albumin/Globulin [Mass ratio] 0.7 {ratio} Normal [facility] Comment on above: Performed By: #### C MP #### [facility] [address] [place] [address] Dr. Janeth Valdez ALP [Catalytic activity/Vol] 100 U/L Normal 46-116 [facility] Comment on above: Performed By: #### C MP #### [facility] [address] [place] [address] Dr. Janeth Valdez ALT [Catalytic activity/Vol] 36 U/L Normal 14-59 [facility] Comment on above: Performed By: #### C MP #### [facility] [address] [place] [address] Dr. Janeth Valdez Anion gap [Moles/Vol] 12.5 mmol/L Normal [facility] Comment on above: Performed By: #### C MP #### [facility] [address] [place] [address] Dr. Janeth Valdez AST [Catalytic activity/Vol] 27 U/L Normal 15-37 [facility] Comment on above: Performed By: #### C MP #### [facility] [address] [place] [address] Dr. Janeth Valdez Bilirubin [Mass/Vol] 0.3 mg/dL Normal 0.2-1.0 [facility] Comment on above: Performed By: #### C MP #### [facility] [address] [address] [address] Janeth Valdez Calcium [Mass/Vol] 8.9 mg/dL Normal 8.5-10.1 [facility] Comment on above: Performed By: #### C MP #### [facility] [address] [address] [address] Janeth Valdez Chloride [Moles/Vol] 106 mmol/L Normal 98-107 [facility] Comment on above: Performed By: #### C MP #### [facility] [address] [address] [address] Janeth Valdez CO2 [Moles/Vol] 24.3 mmol/L Normal 21.0-32.0 [facility] Comment on above: Performed By: #### C MP #### [facility] [address] [place] [address] Dr. Janeth Valdez Creatinine [Mass/Vol] 0.99 mg/dL Normal 0.55-1.02 [facility] Comment on above: Performed By: #### C MP #### [facility] [address] [address] [address] Janeth Valdez EGFR-AF KITTITIAN >60 Normal >=60 [facility] Comment on above: Performed By: #### C MP #### [facility] [address] [place] [address] Dr. Janeth Valdez EGFR-NON AF KITTITIAN 54 mL/min/1.73m2 Critically low >=60 [facility] Comment on above: Performed By: #### C MP #### [facility] [address] [place] [address] Dr. Janeth Valdez Globulin (S) [Mass/Vol] 4.3 g/dL Normal [facility] Comment on above: Performed By: #### C MP #### [facility] [address] [place] [address] Dr. Janeth Valdez Glucose [Mass/Vol] 138 mg/dL Critically high 74-106 [facility] Comment on above: Performed By: #### C MP #### [facility] [address] [place] [address] Dr. Janeth Valdez Potassium [Moles/Vol] 4.8 mmol/L Normal 3.5-5.1 [facility] Comment on above: Performed By: #### C MP #### [facility] [address] [place] [address] Dr. Janeth Valdez Protein [Mass/Vol] 7.1 g/dL Normal 6.4-8.2 [facility] Comment on above: Performed By: #### C MP #### [facility] [address] [place] [address] Dr. Janeth Valdez Sodium [Moles/Vol] 138 mmol/L Normal 136-145 [facility] Comment on above: Performed By: #### C MP #### [facility] [address] [place] [address] Dr. Janeth Valdez Urea nitrogen [Mass/Vol] 20.0 mg/dL Critically high 7.0-18.0 [facility] Comment on above: Performed By: #### C MP #### [facility] [address] [place] [address] Dr. Janeth Valdez Urea nitrogen/Creatini ne [Mass ratio] 20.2 mg/mg Normal [facility] Comment on above: Performed By: #### C MP #### [facility] [address] [place] [address] Dr. Janeth Valdez BNPon 06-25-2022 Natriuretic peptide B (Bld) [Mass/Vol] 365.0 pg/mL Normal <=1,800.0 [facility] Comment on above: Performed By: #### C BC #### [facility] [address] [place] [address] Dr. Janeth Valdez CBC AUTO DIFFon 06-25-2022 BASO # 0.1 103/ul Normal 0.0-0.1 [facility] Comment on above: Performed By: #### C BC #### [facility] [address] [place] [address] Dr. Janeth Valdez Basophils/100 WBC (Bld) 0.7 % Normal 0.2-2.0 [facility] Comment on above: Performed By: #### C BC #### [facility] [address] [place] [address] Dr. Janeth Valdez EO # 0.2 103/ul Normal 0.0-0.7 [facility] Comment on above: Performed By: #### C BC #### [facility] [address] [place] [address] Dr. Janeth Valdez Eosinophils/100 WBC (Bld) 1.9 % Normal 0.9-7.0 [facility] Comment on above: Performed By: #### C BC #### [facility] [address] [place] [address] Dr. Janeth Valdez Erythrocyte distribution width (RBC) [Ratio] 12.9 % Normal 11.0-15.0 [facility] Comment on above: Performed By: #### C BC #### [facility] [address] [place] [address] Dr. Janeth Valdez Hematocrit (Bld) [Volume fraction] 39.6 % Normal 36.0-48.0 [facility] Comment on above: Performed By: #### C BC #### [facility] [address] [place] [address] Dr. Janeth Valdez Hemoglobin (Bld) [Mass/Vol] 13.6 g/dL Normal 12.0-16.0 [facility] Comment on above: Performed By: #### C BC #### [facility] [address] [place] [address] Dr. Janeth Valdez IG # 0.02 10e3/ul Normal 0.00-0.03 [facility] Comment on above: Performed By: #### C BC #### [facility] [address] [place] [address] Dr. Janeth Valdez IG % 0.2 % Normal 0.0-0.5 [facility] Comment on above: Performed By: #### C BC #### [facility] [address] [place] [address] Dr. Janeth Valdez LYMPH # 2.2 103/ul Normal 1.2-3.8 [facility] Comment on above: Performed By: #### C BC #### [facility] [address] [place] [address] Dr. Janeth Valdez Lymphocytes/100 WBC (Bld) 24.4 % Normal 20.5-60.0 [facility] Comment on above: Performed By: #### C BC #### [facility] [address] [place] [address] Dr. Janeth Valdez MANUAL DIFF REQ NO Normal [facility] Comment on above: Performed By: #### C BC #### [facility] [address] [place] [address] Dr. Janeth Valdez MCH (RBC) [Entitic mass] 32.5 pg Normal 26.7-34.0 [facility] Comment on above: Performed By: #### C BC #### [facility] [address] [place] [address] Dr. Janeth Valdez MCHC (RBC) [Mass/Vol] 34.3 g/dL Normal 29.9-35.2 [facility] Comment on above: Performed By: #### C BC #### [facility] [address] [place] [address] Dr. Janeth Valdez MCV (RBC) [Entitic vol] 94.5 fL Normal 81.0-99.0 [facility] Comment on above: Performed By: #### C BC #### [facility] [address] [place] [address] Dr. Janeth Valdez MONO # 0.8 103/ul Normal 0.3-0.8 [facility] Comment on above: Performed By: #### C BC #### [facility] [address] [place] [address] Dr. Janeth Valdez Monocytes/100 WBC (Bld) 9.0 % Normal 1.7-12.0 [facility] Comment on above: Performed By: #### C BC #### [facility] [address] [place] [address] Dr. Janeth Valdez NEUT # 5.7 103/ul Normal 1.4-6.5 [facility] Comment on above: Performed By: #### C BC #### [facility] [address] [place] [address] Dr. Janeth Valdez Neutrophils/100 WBC (Bld) 63.8 % Normal 43.0-75.0 [facility] Comment on above: Performed By: #### C BC #### [facility] [address] [address] [address] Janeth Valdez Platelet mean volume (Bld) [Entitic vol] 9.6 fL Normal 9.5-13.5 [facility] Comment on above: Performed By: #### C BC #### [facility] [address] [place] [address] Dr. Janeth Valdez PLT 173 103/ul Normal 150-450 [facility] Comment on above: Performed By: #### C BC #### [facility] [address] [place] [address] Dr. Janeth Valdez RBC 4.19 106/ul Critically low 4.20-5.40 [facility] Comment on above: Performed By: #### C BC #### [facility] [address] [place] [address] Dr. Janeth Valdez WBC 8.9 103/ul Normal 4.0-11.0 [facility] Comment on above: Performed By: #### C BC #### [facility] [address] [place] [address] Dr. Janeth Valdez CTA CHEST WO W CONon 022 CTA CHEST WO W CON EXAMINATION: CTA CHEST WO W CON HISTORY: D-dimer above reference range , cough COMPARISON: No relevant comparison available. TECHNIQUE: Axial, Coronal, and Sagittal images were created without and with IV contrast. Dose reduction techniques were achieved by using automated exposure control and/or adjustment of mA and/or kV according to patient size and/or use of iterative reconstruction technique. FINDINGS: LUNGS: Mild to moderate bilateral groundglass alveolar opacities. A few scattered subcentimeter pulmonary nodules PLEURA: No mass, effusion, or pneumothorax. VASCULATURE: Normal postcontrast opacification of the central pulmonary arterial tree JASON: Bilateral hilar lymph nodes the largest on the right measures 1.8 x 1.4 cm MEDIASTINUM: No mass or adenopathy. CARDIAC: No enlargement, pericardial thickening, or significant calcification. AORTA: No aneurysm or dissection. Moderate diffuse atherosclerosis CHEST WALL: No mass or axillary adenopathy. BONES: No bone lesion or fracture. LIMITED ABDOMEN: No suspicious findings. Limited images of the upper abdomen. OTHER: Negative. IMPRESSION: No central pulmonary thromboembolic disease Moderate groundglass infiltrates, consider an atypical or viral pneumonia over pulmonary edema Electronically authenticated by: KRISHAN VASQUEZ Date: 2022-06-25 11:13 Normal [facility] CULTURE BLOODon 06-25-2022 Microscopic examination of blood, culture Culture Observations: NO GROWTH AT 5 DAYS. Normal [facility] Comment on above: Performed By: #### C BC #### [facility] [address] [place] [address] Dr. Janeth Valdez Covid-19 PCR (CVDTB)on SARS-CoV-2 (COVID-19) RNA ASIF+probe Ql (Unsp spec) Not detected Normal NOT DETECTED [facility] Comment on above: Result Comment: When diagnostic testing is negative, the possibility of a false negative should be considered in the context of a patient's recent exposures and the presence of clinical signs and symptoms consistent with SARS-CoV-2. This test is not yet approved or cleared by the [place] FDA. When there are no FDA-approved or cleared tests available, and other criteria are met, FDA can make tests available under an emergency access mechanism called an Emergency Use Authorization (EUA). The EUA for this test is supported by the Transport Technician of Health and Human Service's declaration that circumstances exist to justify the emergency use of in vitro diagnostics for the detection and/or diagnosis of the virus that causes COVID-19. This EUA will remain in effect for the duration of the COVID-19 declaration justifying emergency of IVDs, unless it is terminated or revoked by the FDA (after which the test may no longer be used). Performed By: #### C VDTBH #### [facility] [address] [place] [address] Dr. Janeth Valdez D-DIMERon 06-25-2022 D-DIMER 0.98 mg/L FEU Critically high <=0.59 [facility] Comment on above: Performed By: #### C MP #### [facility] [address] [place] [address] Dr. Yilan Valdez D-DIMER COMMENTS SEE BELOW Normal [facility] Comment on above: Result Comment: Incr eases in D-Dimer concentration observed with thromboembolic events can be variable due to localization, size, and age of the thrombus. Therefore, a thromboembolic event cannot be diagnosed with certainty on the basis of the reference range. D-Dimers may also be elevated for a variety of disorders including: advanced age, , coronary disease, cancer, liver disease, infection, inflammation, hematoma, DIC, trauma, post-surgery, diabetes, thrombolytic or anticoagulant therapy, stress, and generalized hospitalization. Performed By: #### C MP #### [facility] [address] [place] [address] Dr. Janeth Valdez ER URINE PROFILEon 2 Bilirubin Ql (U) Negative Normal NEGATIVE [facility] Comment on above: Performed By: #### Lucia ANDREW UMICRO #### [facility] [address] [place] [address] Dr. Janeth Valdez Clarity (U) CLEAR Normal CLEAR [facility] Comment on above: Performed By: #### Lucia ANDREW UMICRO #### [facility] [address] [place] [address] Dr. Janeth Valdez Color (U) YELLOW Normal YELLOW [facility] Comment on above: Performed By: #### E KAMRAN UMICRO #### [facility] [address] [place] [address] Dr. Janeth JERONIMOD A micrscopic examination will be performed if indicated. Normal [facility] Comment on above: Performed By: #### Lucia ANDREW UMICRO #### [facility] [address] [place] [address] Dr. Janeth Valdez Glucose Ql (U) Negative Normal NEGATIVE [facility] Comment on above: Performed By: #### E RUBrandie UMICRO #### [facility] [address] [place] [address] Dr. Janeth Valdez Hemoglobin Ql (U) TRACE-INTACT Abnormal NEGATIVE [facility] Comment on above: Performed By: #### E KAMRAN UMICRO #### [facility] [address] [place] [address] Dr. Janeth Valdez Ketones Ql (U) Negative Normal NEGATIVE [facility] Comment on above: Performed By: #### ATUL NEWELLICRO #### [facility] [address] [place] [address] Dr. Janeth Valdez LEUKOCYTES TRACE Abnormal NEGATIVE [facility] Comment on above: Performed By: #### Lucia ANDREW UMICRO #### [facility] [address] [place] [address] Dr. Janeth Valdez Nitrite Ql (U) Negative Normal NEGATIVE [facility] Comment on above: Performed By: #### Lucia ANDREW UMICRO #### [facility] [address] [place] [address] Dr. Janeth Valdez pH (U) 6.0 [pH] Normal 5-9 [facility] Comment on above: Performed By: #### Lucia ANDREW UMICRO #### [facility] [address] [place] [address] Dr. Janeth Valdez SPEC GRAVITY 1.025 Normal 1.005-<=1.025 [facility] Comment on above: Performed By: #### Lucia ANDREW UMICRO #### [facility] [address] [place] [address] Dr. Janeth Valdez UA PROTEIN Negative Normal NEGATIVE/ TRACE [facility] Comment on above: Performed By: #### Lucia ANDREW UMICRO #### [facility] [address] [place] [address] Dr. Janeth Valdez UR MICRO IND INDICATED Normal [facility] Comment on above: Performed By: #### Lucia ANDREW UMICRO #### [facility] [address] [place] [address] Dr. Janeth Valdez Urobilinogen Qn (U) 0.2 {Jacques'U}/dL Normal 0.2 - 1.0 [facility] Comment on above: Performed By: #### Lucia ANDREW UMICRO #### [facility] [address] [place] [address] Dr. Janeth Valdez LACTATE/LACTIC ACIDon 2021 Lactate [Moles/Vol] 1.0 mmol/L Normal 0.4-1.9 [facility] Comment on above: Performed By: #### C MP #### [facility] [address] [place] [address] Dr. Janeth Valdez PROF 14(COMP METB)on 022 Albumin [Mass/Vol] 2.9 g/dL Critically low 3.4-5.0 [facility] Comment on above: Performed By: #### C MP #### [facility] [address] [place] [address] Dr. Janeth Valdez Albumin/Globulin [Mass ratio] 0.7 {ratio} Normal [facility] Comment on above: Performed By: #### C MP #### [facility] [address] [place] [address] Dr. Janeth Valdez ALP [Catalytic activity/Vol] 108 U/L Normal 46-116 [facility] Comment on above: Performed By: #### C MP #### [facility] [address] [place] [address] Dr. Janeth Valdez ALT [Catalytic activity/Vol] 37 U/L Normal 14-59 [facility] Comment on above: Performed By: #### C MP #### [facility] [address] [place] [address] Dr. Janeth Valdez Anion gap [Moles/Vol] 15.5 mmol/L Normal [facility] Comment on above: Performed By: #### C MP #### [facility] [address] [place] [address] Dr. Janeth Valdez AST [Catalytic activity/Vol] 30 U/L Normal 15-37 [facility] Comment on above: Performed By: #### C MP #### [facility] [address] [place] [address] Dr. Janeth Valdez Bilirubin [Mass/Vol] 0.6 mg/dL Normal 0.2-1.0 [facility] Comment on above: Performed By: #### C MP #### [facility] [address] [place] [address] Dr. Janeth Valdez Calcium [Mass/Vol] 8.8 mg/dL Normal 8.5-10.1 [facility] Comment on above: Performed By: #### C MP #### [facility] [address] [place] [address] Dr. Janeth Valdez Chloride [Moles/Vol] 104 mmol/L Normal 98-107 [facility] Comment on above: Performed By: #### C MP #### [facility] [address] [place] [address] Dr. Janeth Valdez CO2 [Moles/Vol] 20.4 mmol/L Critically low 21.0-32.0 [facility] Comment on above: Performed By: #### C MP #### [facility] [address] [place] [address] Dr. Janeth Valdez Creatinine [Mass/Vol] 1.06 mg/dL Critically high 0.55-1.02 [facility] Comment on above: Performed By: #### C MP #### [facility] [address] [place] [address] Dr. Janeth Valdez EGFR-AF KITT[place]IAN 60 mL/min/1.73m2 Normal >=60 [facility] Comment on above: Performed By: #### C MP #### [facility] [address] [place] [address] Dr. Janeth Valdez EGFR-NON AF [place]IAN 50 mL/min/1.73m2 Critically low >=60 [facility] Comment on above: Performed By: #### C MP #### [facility] [address] [place] [address] Dr. Janeth Valdez Globulin (S) [Mass/Vol] 4.2 g/dL Normal [facility] Comment on above: Performed By: #### C MP #### [facility] [address] [address] [address] Janeth Valdez Glucose [Mass/Vol] 109 mg/dL Critically high 74-106 [facility] Comment on above: Performed By: #### C MP #### [facility] [address] [place] [address] Dr. Janeth Valdez Potassium [Moles/Vol] 3.9 mmol/L Normal 3.5-5.1 [facility] Comment on above: Performed By: #### C MP #### [facility] [address] [place] [address] Dr. Janeth Valdez Protein [Mass/Vol] 7.1 g/dL Normal 6.4-8.2 [facility] Comment on above: Performed By: #### C MP #### [facility] [address] [place] [address] Dr. Janeth Valdez Sodium [Moles/Vol] 136 mmol/L Normal 136-145 [facility] Comment on above: Performed By: #### C MP #### [facility] [address] [place] [address] Dr. Janeth Valdez Urea nitrogen [Mass/Vol] 19.0 mg/dL Critically high 7.0-18.0 [facility] Comment on above: Performed By: #### C MP #### [facility] [address] [place] [address] Dr. Janeth Valdez Urea nitrogen/Creatini ne [Mass ratio] 17.9 mg/mg Normal [facility] Comment on above: Performed By: #### C MP #### [facility] [address] [place] [address] Dr. Janeth Valdez URINE MICROSCOPIC ONLYon BACTERIA TRACE Abnormal NONE SEEN [facility] Comment on above: Performed By: #### ATUL NEWELLICRO #### [facility] [address] [place] [address] Dr. Janeth Valdez Bacteria identified Cx Nom (U) NOT INDICATED Normal [facility] Comment on above: Performed By: #### Lucia ANDREW UMICRO #### [facility] [address] [place] [address] Dr. Janeth Valdez CAST NONE SEEN Normal NONE SEEN [facility] Comment on above: Performed By: #### Lucia ANDREW UMICRO #### [facility] [address] [place] [address] Dr. Janeth Valdez Crystals LM Nom (Urine sed) NONE SEEN Normal NONE SEEN [facility] Comment on above: Performed By: #### E CESIA ANDREWRO #### [facility] [address] [address] [address] Janeth Valdez Epithelial cells LM Ql (Urine sed) MANY Abnormal NONE SEEN /RARE [facility] Comment on above: Performed By: #### E RUR, UMICRO #### [facility] [address] [address] [address] Janeth Valdez MUCOUS NONE SEEN Normal NONE SEEN [facility] Comment on above: Performed By: #### E OLIVIAR, UMICRO #### [facility] [address] [address] [address] Janeth Valdez RBC 2-5 Abnormal 0-2 [facility] Comment on above: Performed By: #### E KAMRAN, UMICRO #### [facility] [address] [address] [address] Janeth Valdez WBC 0-2 Abnormal NONE SEEN [facility] Comment on above: Performed By: #### Lucia ANDREW, UMICRO #### [facility] [address] [place] [address] Dr. Janeth Valdez XR CHEST 1 Von 06-25-2022 XR CHEST 1 V EXAM: XR CHEST 1 V HISTORY: COUGH COMPARISON: Chest x-ray performed 05/29/2022 and 07/07/2015. TECHNIQUE: AP portable upright view of the chest obtained. FINDINGS: The cardiomediastinal silhouette is not enlarged. Pulmonary vascular markings are within normal limits. There is no lower lobe interstitial thickenings. No sizable effusion and no pneumothorax. Increased lucency of the upper lobes with hyperinflation is present. The osseous structures appear grossly intact. IMPRESSION: Interstitial opacities at the lower lobes bilaterally superimposed on emphysematous lungs possible atelectasis, edema or atypical pneumonia. Electronically authenticated by: LEDA NASH Date: 2022-06-25 05:39 Normal [facility] SARS-CoV-2 (COVID-19) RNA NA A+probe Ql (Resp)on 06-06-2022 SARS-CoV-2 (COVID-19) RNA ASIF+probe Ql (Unsp spec) Positive [employer] [facility]on 05-20 SARS-CoV-2 (COVID-19) RNA ASIF+probe Ql (Unsp spec) Detected Critically abnormal NOT DETECTED [facility] Comment on above: Result Comment: This test is not yet approved or cleared by the [place] FDA. When there are no FDA-approved or cleared tests available, and other criteria are met, FDA can make tests available under an emergency access mechanism called an Emergency Use Authorization (EUA). The EUA for this test is supported by the [place] of Health and Human Service's (HHS's) declaration that circumstances exist to justify the emergency use of in vitro diagnostics for the detection and/or diagnosis of the virus that causes COVID-19. This EUA will remain in effect (meaning this test can be used) for the duration of the COVID-19 declaration justifying emergency of IVDs, unless it is terminated or revoked by FDA (after which the test may no longer be used). Performed By: #### C [facility] #### [facility] [address] [place] [address] Dr. Janeth Valdez US SINGLE QUAD RT UPPERon US SINGLE QUAD RT UPPER EXAMINATION: US SINGLE QUAD RT UPPER HISTORY: Right upper quadrant pain COMPARISON: No relevant comparison available. FINDINGS: The patient had pain throughout the exam The visualized pancreas is normal. The liver is normal in size, contour and echotexture. 5.2 mm echogenic focus in the left hepatic lobe with acoustic shadowing likely representing a calcification. Hepatopedal flow in the main portal vein with velocity of 33 cm/s. The gallbladder is normal in size. The gallbladder wall measures 2.1 mm, normal. No pericholecystic fluid or cholelithiasis. The common bile duct measures 6.1 mm, normal for age. The right kidney is normal in appearance measuring 9.5 x 5.4 x 4.6 cm. the cortex measures 1.5 cm. No solid mass or hydronephrosis IMPRESSION: No acute abnormality Electronically authenticated by: KRISHAN VASQUEZ Date: 2022-05-31 17:23 Normal [facility] CBC AUTO DIFFon 05-29-2022 BASO # 0.1 103/ul Normal 0.0-0.1 [facility] Comment on above: Performed By: #### C BC #### [facility] [address] [place] [address] Dr. Janeth Valdez Basophils/100 WBC (Bld) 1.0 % Normal 0.2-2.0 [facility] Comment on above: Performed By: #### C BC #### [facility] [address] [place] [address] Dr. Janeth Valdez EO # 0.3 103/ul Normal 0.0-0.7 [facility] Comment on above: Performed By: #### C BC #### [facility] [address] [place] [address] Dr. Janeth Valdez Eosinophils/100 WBC (Bld) 3.5 % Normal 0.9-7.0 [facility] Comment on above: Performed By: #### C BC #### [facility] [address] [place] [address] Dr. Janeth Valdez Erythrocyte distribution width (RBC) [Ratio] 12.6 % Normal 11.0-15.0 [facility] Comment on above: Performed By: #### C BC #### [facility] [address] [place] [address] Dr. Janeth Valdez Hematocrit (Bld) [Volume fraction] 45.0 % Normal 36.0-48.0 [facility] Comment on above: Performed By: #### C BC #### [facility] [address] [place] [address] Dr. Janeth Valdez Hemoglobin (Bld) [Mass/Vol] 14.8 g/dL Normal 12.0-16.0 [facility] Comment on above: Performed By: #### C BC #### [facility] [address] [place] [address] Dr. Janeth Valdez IG # 0.01 10e3/ul Normal 0.00-0.03 [facility] Comment on above: Performed By: #### C BC #### [facility] [address] [place] [address] Dr. Janeth Valdez IG % 0.1 % Normal 0.0-0.5 [facility] Comment on above: Performed By: #### C BC #### [facility] [address] [place] [address] Dr. Janeth Valdez LYMPH # 2.7 103/ul Normal 1.2-3.8 [facility] Comment on above: Performed By: #### C BC #### [facility] [address] [place] [address] Dr. Janeth Valdez Lymphocytes/100 WBC (Bld) 33.7 % Normal 20.5-60.0 [facility] Comment on above: Performed By: #### C BC #### [facility] [address] [place] [address] Dr. Janeth Valdez MANUAL DIFF REQ NO Normal [facility] Comment on above: Performed By: #### C BC #### [facility] [address] [place] [address] Dr. Janeth Valdez MCH (RBC) [Entitic mass] 32.5 pg Normal 26.7-34.0 [facility] Comment on above: Performed By: #### C BC #### [facility] [address] [place] [address] Dr. Janeth Valdez MCHC (RBC) [Mass/Vol] 32.9 g/dL Normal 29.9-35.2 [facility] Comment on above: Performed By: #### C BC #### [facility] [address] [place] [address] Dr. Janeth Valdez MCV (RBC) [Entitic vol] 98.7 fL Normal 81.0-99.0 [facility] Comment on above: Performed By: #### C BC #### [facility] [address] [place] [address] Dr. Janeth Valdez MONO # 0.7 103/ul Normal 0.3-0.8 [facility] Comment on above: Performed By: #### C BC #### [facility] [address] [place] [address] Dr. Janeth Valdez Monocytes/100 WBC (Bld) 8.9 % Normal 1.7-12.0 [facility] Comment on above: Performed By: #### C BC #### [facility] [address] [place] [address] Dr. Janeth Valdez NEUT # 4.3 103/ul Normal 1.4-6.5 [facility] Comment on above: Performed By: #### C BC #### [facility] [address] [place] [address] Dr. Janeth Valdez Neutrophils/100 WBC (Bld) 52.8 % Normal 43.0-75.0 [facility] Comment on above: Performed By: #### C BC #### [facility] [address] [place] [address] Dr. Janeth Valdez Platelet mean volume (Bld) [Entitic vol] 10.0 fL Normal 9.5-13.5 [facility] Comment on above: Performed By: #### C BC #### [facility] [address] [place] [address] Dr. Janeth Valdez PLT 217 103/ul Normal 150-450 [facility] Comment on above: Performed By: #### C BC #### [facility] [address] [place] [address] Dr. Janeth Valdez RBC 4.56 106/ul Normal 4.20-5.40 [facility] Comment on above: Performed By: #### C BC #### [facility] [address] [place] [address] Dr. Janeth Valdez WBC 8.1 103/ul Normal 4.0-11.0 [facility] Comment on above: Performed By: #### C BC #### [facility] [address] [place] [address] Dr. Janeth Valdez LIPASEon 05-29-2022 Lipase [Catalytic activity/Vol] 108.0 U/L Normal 73.0-393.0 [facility] Comment on above: Performed By: #### C MP #### [facility] [address] [place] [address] Dr. Janeth Valdez LIVER PROFILEon 05-29-2022 Albumin [Mass/Vol] 3.4 g/dL Normal 3.4-5.0 [facility] Comment on above: Performed By: #### C BC #### [facility] [address] [place] [address] Dr. Janeth Valdez Albumin/Globulin [Mass ratio] 0.8 {ratio} Normal [facility] Comment on above: Performed By: #### C BC #### [facility] [address] [place] [address] Dr. Janeth Valdez ALP [Catalytic activity/Vol] 116 U/L Normal 46-116 [facility] Comment on above: Performed By: #### C BC #### [facility] [address] [place] [address] Dr. Janeth Valdez ALT [Catalytic activity/Vol] 24 U/L Normal 14-59 [facility] Comment on above: Performed By: #### C BC #### [facility] [address] [place] [address] Dr. Janeth Valdez AST [Catalytic activity/Vol] 30 U/L Normal 15-37 [facility] Comment on above: Performed By: #### C BC #### [facility] [address] [place] [address] Dr. Janeth Valdez BILI, CONJUGATED 0.1 mg/dL Normal 0.0-0.2 [facility] Comment on above: Performed By: #### C BC #### [facility] [address] [place] [address] Dr. Janeth Valdez Bilirubin [Mass/Vol] 0.5 mg/dL Normal 0.2-1.0 [facility] Comment on above: Performed By: #### C BC #### [facility] [address] [place] [address] Dr. Janeth Valdez Globulin (S) [Mass/Vol] 4.4 g/dL Normal [facility] Comment on above: Performed By: #### C BC #### [facility] [address] [place] [address] Dr. Janeth Valdez Protein [Mass/Vol] 7.8 g/dL Normal 6.4-8.2 [facility] Comment on above: Performed By: #### C BC #### [facility] [address] [place] [address] Dr. Janeth Valdez XR CHEST 2 Von 05-29-2022 XR CHEST 2 V EXAM: CHEST 2 VIEWS HISTORY: Cough TECHNIQUE: PA and lateral views chest. COMPARISON: 07/07/2015. FINDINGS: There is mild scarring at the lung apices, with otherwise clear lungs. There is no focal lung consolidation, pleural effusion or pneumothorax. Pulmonary vasculature is within normal limits. There is aortic atherosclerosis and normal heart size. IMPRESSION: 1. No acute cardiopulmonary disease. Electronically authenticated by: TIERA THAYER Date: 2022-05-29 12:08 Normal [facility] XR knee BI 2Von 02-11-2019 XR knee BI 2V [facility] [place] [address] [place] [address] XRay Report Signed Patient: Dina Green MR#: [id number] 0 : 1940 Acct:[id number] Age/Sex: 78 / F ADM Date: 02/11/19 Loc: [facility] Room: Type: [facility] Attending Dr: Cruz Woodward MD Ordering Provider: Cruz Woodward MD Date of Service: 02/11/19 XR/XR knee BI 2V: History of total bilateral knee replacement Copies to: Cruz Woodward MD BILATERAL KNEES - 2 views each COMPARISON: 02/11/2017 CLINICAL DATA: Follow-up knee replacements. No symptoms. Standing AP and lateral views were obtained. There are bilateral knee replacements. The hardware appears intact and in appropriate position. No acute fractures or dislocation are seen. There is a trace amount of joint fluid. There is mild prominence of the soft tissues related to body habitus. XR/XR knee BI 2V IMPRESSION: SATISFACTORY APPEARANCE OF KNEE REPLACEMENTS. NO ACUTE BONY FINDINGS. Impression dictated by: Bisi Ochoa M.D.02/11/2019 10:25 AM Dictation Location: [facility] Transcribed By: ERI 02/11/19 1025 Dictated By: Bisi Ochoa MD 02/11/19 1023 Signed By: 02/11/19 1025 [facility] Vital Signs Date Time Vital Sign Value Performing Clinician Facility 06-21-2022 10:55-0400 Body height 157.48 cm Zeenat Cartwright Other [facility] Other 06-21-2022 10:55-0400 Body mass index (BMI) [Ratio] 35.66 kg/m2 Zeenat Cartwright Other [facility] Other 06-21-2022 10:55-0400 Body temperature 98.3 [degF] Zeenat Cartwright Other [facility] Other 06-21-2022 10:55-0400 Body weight 88.45 kg Zeenat Cartwright Other [facility] Other 06-21-2022 10:55-0400 Respiratory rate 18 /min Zeenat Cartwright Other [facility] Other 06-21-2022 10:55-0400 SaO2% (BldA) [Mass fraction] 98 % Zeenat Cartwright Other [facility] Other 06-06-2022 10:50-0400 Body height 157.48 cm Anitha Andrei Other [facility] Other 06-06-2022 10:50-0400 Body mass index (BMI) [Ratio] 35.48 kg/m2 Anitha Andrei Other [facility] Other 06-06-2022 10:50-0400 Body temperature 101.1 [degF] Anitha Forbes Other [facility] Other 06-06-2022 10:50-0400 Body weight 88 kg Anitha Andrei Other [facility] Other 06-06-2022 10:50-0400 Respiratory rate 18 /min Anitha Forbes Other [facility] Other 06-06-2022 10:50-5975 SaO2% (BldA) [Mass fraction] 99 % Anitha Forbes Other [facility] Other Encounters Encounter Date Encounter Type Care Provider Facility Start: 06-27-2025 ambulatory Ester L Michele Facility: [facility] [facility] Start: 06-24-2024 End: 06-24-2024 ambulatory Ester L Michele Facility:[facility] Start: 04-16-2024 End: 04-16-2024 ambulatory Ester L Michele Facility:[facility] Start: 03-09-2024 End: 03-09-2024 ambulatory Ester L Michele Facility:[facility] Start: 09-16-2023 End: 09-16-2023 ambulatory Ester L Michele Facility:[facility] Start: 04-03-2023 End: 04-03-2023 Lab Drop off Ester L Michele [facility] Start: 07-02-2022 End: 07-02-[address] BRENDA HURTADO Facility:[facility] Start: 07-01-2022 End: 07-02-[address] BRENDA HURTADO Facility:[facility] Start: 06-25-[address] BRENDA HURTADO Facilit y:[facility] Start: 06-25-2022 End: 06-27-[address] BRENDA HURTADO Facility:[facility] Start: 06-21-2022 End: 06-21-2022 ambulatory Zeenat Cartwright Other [facility] Other Start: 06-21-2022 Office outpatient visit 15 minutes Zeenat Cartwright [facility] Start: 06-06-2022 End: 06-06-2022 ambulatory Anitha Forbes Other [facility] Other Start: 06-06-2022 Office outpatient visit 15 minutes Anitha Forbes [facility] Start: 06-05-2022 End: 06-05-[address] BRENDA HURTADO Facility:[facility] Start: 05-31-2022 End: 06-01-[address] BRENDA HURTADO Facility:[facility] Start: 05-29-2022 End: 05-30-[address] BRENDA HURTADO Facility:[facility] Start: 02-11-2019 End: 02-11-2019 Patient encounter procedure Cruz Woodward Facility:[facility] Procedures Date Procedure Procedure Detail Performing Clinician Appendectomy Ester Bautista section Ester Michele Hysterectomy and danny ateral salpingo-oophorectomy sample (specimen) Estergenesis Quinnab Payers Date Payer Category Payer Private Health Insurance [facility] [id number] 2019 Self-pay 1959 Medicare [id number] 2. [id number] 1959 Unknown [id number] 1940 Unknown [id number] 2.16.84 [id number] 1940 Unknown [id number] 2.16.84 [id number] 1940 Unknown [id number] 2.16.84 [id number] 1940 Unknown [id number] 2.16.84 [id number] 1940 Unknown [id number] 2.16.84 [id number] 1940 Unknown [id number] 2.16.84 [id number] 1940 Unknown [id number] 2.16.84 [id number] 1940 Unknown [id number] 2.16.8 [id number] 1940 Unknown [id number] 2.16.8 [id number] 1940 Unknown [id number] 2.16.8 [id number] 1940 Unknown [id number] 2.16.8 [id number] 1940 Unknown [id number] 2.16.8 [id number] Unknown [id number] 2.16.84 [id number] Social History Date Type Detail Facility Unknown if ever smoked [facility] Other Sex Assigned At [facility] Start: 04-03-2023 Tobacco smoking status Never s moked tobacco (finding) [facility] Tobacco smoking status Never [facility] Clinical Note 06-24-2024 Note Date & Type Note Facility 06-24-2024 Note Patient Education Nutrition BMI for Adults Body mass index (BMI) is a number found using a person's weight and height. BMI can help tell how much of a person's weight is made up of fat. BMI does not measure body fat directly. It is used instead of tests that directly measure body fat, which can be difficult and expensive. What are BMI measurements used for? BMI is useful to: ? Find out if your weight puts you at higher risk for medical problems. ? Help recommend changes, such as in diet and exercise. This can help you reach a healthy weight. BMI screening can be done again to see if these changes are working. How is BMI calculated? Your height and weight are measured. The BMI is found from those numbers. This can be done with U.S. or metric measurements. Note that charts and online BMI calculators are available to help you find your BMI quickly and easily without doing these calculations. To calculate your BMI in U.S. measurements: 1. Measure your weight in pounds (lb). 2. Multiply the number of pounds by 703. ? So, for an adult who weighs 150 lb, multiply that number by 703: 150 x 703, which equals 105,450. 3. Measure your height in inches. Then multiply that number by itself to get a measurement called inches squared. ? So, for an adult who is 70 inches tall, the inches squared measurement is 70 inches x 70 inches, which equals 4,900 inches squared. 4. Divide the total from step 2 (number of lb x 703) by the total from step 3 (inches squared): 105,450 ? 4,900 = 21.5. This is your BMI. To calculate your BMI in metric measurements: 1. Measure your weight in kilograms (kg). ? For this example, the weight is 70 kg. 2. Measure your height in meters (m). Then multiply that number by itself to get a measurement called meters squared. ? So, for an adult who is 1.75 m tall, the meters squared measurement is 1.75 m x 1.75 m, which equals 3.1 meters squared. 3. Divide the number of kilograms (your weight) by the meters squared number. In this example: 70 ? 3.1 = 22.6. This is your BMI. What do the results mean? BMI charts are used to see if you are underweight, normal weight, overweight, or obese. The following guidelines will be used: ? Underweight: BMI less than 18.5. ? Normal weight: BMI between 18.5 and 24.9. ? Overweight: BMI between 25 and 29.9. ? Obese: BMI of 30 or above. BMI is a tool and cannot diagnose a condition. Talk with your health care provider about what your BMI means for you. Keep these notes in mind: ? Weight includes fat and muscle. Someone with a muscular build, such as an athlete, may have a BMI that is higher than 24.9. In cases like these, BMI is not a correct measure of body fat. ? If you have a BMI of 25 or higher, your provider may need to do more testing to find out if excess body fat is the cause. ? BMI is measured the same way for males and females. Females usually have more body fat than males of the same height and weight. Where to find more information For more information about BMI, including tools to quickly find your BMI, go to: ? Centers for Disease Control and Prevention: cdc.gov ? [place] Heart Association: heart.org ? National Heart, Lung, and Blood [place]: nhlbi.nih.gov This information is not intended to replace advice given to you by your health care provider. Make sure you discuss any questions you have with your health care provider. Document Revised: 06/26/2023 Document Reviewed: 06/19/2023 [employer] Patient Education ? 2023 [employer]. Physical Medicine and Rehabilitation Health Maintenance After Age 65 After age 65, you are at a higher risk for certain long-term diseases and infections as well as injuries from falls. Falls are a major cause of broken bones and head injuries in people who are older than age 65. Getting regular preventive care can help to keep you healthy and well. Preventive care includes getting regular testing and making lifestyle changes as recommended by your health care provider. Talk with your health care provider about: ? Which screenings and tests you should have. A screening is a test that checks for a disease when you have no symptoms. ? A diet and exercise plan that is right for you. What should I know about screenings and tests to prevent falls? Screening and testing are the best ways to find a health problem early. Early diagnosis and treatment give you the best chance of managing medical conditions that are common after age 65. Certain conditions and lifestyle choices may make you more likely to have a fall. Your health care provider may recommend: ? Regular vision checks. Poor vision and conditions such as cataracts can make you more likely to have a fall. If you wear glasses, make sure to get your prescription updated if your vision changes. ? Medicine review. Work with your health care provider to regularly review all of the medicines you are taking, including [id number] medicines. As (more content not included)... [facility] Evaluation + Plan note 04-03-2023 Note Date & Type Note Facility 04-03-2023 Evaluation + Plan note Diagnostic Tests [facility] w/ Auto Diff 04/03/23 [facility] Evaluation note 06-21-2022 Note Date & Type Note Facility 06-21-2022 Evaluation note Encounter Date Diagnosis Assessment Notes Jun, Left otitis media with effusion (ICD-10 - H65.92) Rx sent, use as directed. Pt may continue with benadryl as directed. Nothing in affected ear or submerging head under water until resolution of s/s. Immediate eval if warning s/s of intractable pain, fevers, hearing loss, ear drainage, which were discussed with pt while in clinic. Otherwise f/u in 1 week if s/s persists or worsens. Jun, Viral URI (ICD-10 - J06.9) pt declined testing today for COVID. she denies any recent known exposure. low suspicion for bacterial infection at this time. continue symptomatic tx c otc meds prn. recommended hot steam baths and/or cool mist humidifier. push rest/fluids. reinforced universal infection control protocols and good hand hygiene for infection control. recommended self-quarantine for 5 days from start of symptoms in case this is COVID. pt education and anticipatory guidance provided on viral vs bacterial infection progression. immediate eval if warning s/s of intractable fevers, respir distress or other emergent symptoms. otherwise f/u with PCP if febrile or new/worsening s/s. [facility] Other Evaluation note 06-06-2022 Note Date & Type Note Facility 06-06-2022 Evaluation note Encounter Date Diagnosis Assessment Notes May, COVID-19 (ICD-10 - U07.1) Today you tested positive for the COVID virus. This mean you need to follow all CDC quarantine guidelines found at coronavirus.[place].gov. It is important to rest, increase fluids, and stay at home. Recommend contacting primary care provider and discussing best course of action if you have chronic health conditions. COVID POSITIVE education handout discharge instructions. given. May, Bilateral acute otitis media (ICD-10 - H66.93) Ear infections are often a secondary infection caused from an URI, the flu or allergies. Take medication as directed. Complete all doses, even if you feel better. Tylenol or ibuprofen can help with pain. Warm pack to area for comfort helps as well. Follow up with primary care provider if no improvement of symptoms. May, Laryngitis (ICD-10 - J04.0) Symptoms of laryngitis is caused by viruses. Salt water gargles may help with discomfort. Take medications as directed. Cool mist humidifier, steaming up bathroom with shower may help with symptom relief. Follow up with primary care provider if no improvement of symptoms 18 Aug, 2022 Other Additional time spent conducting pre-visit phone call, screening for symptoms, instructions on social distancing, application and removal of PPE, and cleaning of examination room, equipment and supplies was performed. Patient education given for testing methodology and results. Patient care instructions given in writing by [facility] document. [employer] [facility] [employer] Other History general Narrative - Reported Note Date & Type Note Facility History general Narrative - Reported Type Surgical History b/l tka 2011 Hospitalization History see above [facility] Other Hospital course Narrative Note Date & Type Note Facility Hospital course Narrative No data available for this section [facility] Hospital Discharge instructions Note Date & Type Note Facility Hospital Discharge instructions No data available for this section [facility] Progress note Note Date & Type Note Facility Progress note No data available for this section [facility] Summary Purpose Family History No Family History Records FoundNo Family History Records FoundNo Family History Records Found Advance Directives No Advanced Directives Records FoundNo Advanced Directives Records FoundNo Advanced Directives Records Found Additional Source Comments INFORMATION SOURCE (unrecogn ized section and content) DATE CREATED AUTHOR 02/23/2019 [facility] DATE CREATED AUTHOR AUTHOR'S ORGANIZ ATION 09/19/2022 [facility] DATE CREATED AUTHOR AUTHOR'S ORGANIZ ATION 06/25/2024 [facility] REASON FOR VISIT (unrecogniz ed section and content) SILVER SATURN, CONGESTION, C OUGH, FEVER, COVID EXPOSURE TO SPOUSE, [facility] COVID symptomatic/exposure POSCOUGH, CONGESTION, EARACHE Patient Care team informatio n (unrecognized section and content) Personnel Name: Ester Romero Address: Address: [address] [place] [id number]- FOR RECORDS PERTAINING TO PATIENTS WHO ARE OR HAVE BEEN ENROLLED IN A CHEMICAL DEPENDENCY/SUBSTANCEABUSE PROGRAM, SOME INFORMATION MAY BE OMITTED. This clinical summary was aggregated from multiple sources. Caution should be exercised in using it in the provision of clinical care. This summary normalizes information from multiple sources, and as a consequence, information in this document may materially change the coding, format and clinical context of patient data. In addition, data may be omitted in some cases. CLINICAL DECISIONS SHOULD BE BASED ON THE PRIMARY CLINICAL RECORDS. [facility] [employer] [facility] provides no warranty or guarantee of the accuracy or completeness of information in this document.
== END 2024-06-29 15:49 | disposition home or self-care (01) ==
LOC: CT 15:48
PROVIDERS: PCP Family Medicine; Visit Provider Internal Medicine
DX: R93.89 Abnormal findings on diagnostic imaging of other specified body structures (principal)
CPT/HCPCS: 71250